=== PATIENT | male | born 1965 | race Caucasian/White ===

== ENCOUNTER → 2016-11-26 | Outpatient (CLI) | payer OTHER ==
[~2016-11-26] MED LIST: BACTRIM 400 MG-1 TAB; ENULOSE10 GM/15 M PO; FLAGYL PO; FORTAMET500 MG PO; GLIPIZIDE5 MG PO; GLUCOPHAGE XR500 M1 PO; GLYBURIDE MICRON3 MG PO; INDERAL 20MG20 MG PO; KAPIDEX60 MG PO; LACTULOSE SYRUP1 ML PO; LISINOPRIL10 MG PO; PRILOSEC 20MG20 MG PO; PRILOSEC20 MG PO; TRAMADOL50 MG PO; ULTRAM50 MG PO; XIFAXAN200 MG PO
== END ==
LOC: COL.RAD 08:05
DX: D37.6 Neoplasm of uncertain behavior of liver, gallbladder and bile ducts (principal); K74.69 Other cirrhosis of liver; I85.01 Esophageal varices with bleeding; K72.90 Hepatic failure, unspecified without coma; R77.2 Abnormality of alphafetoprotein
CPT/HCPCS: A9585

== ENCOUNTER → 2017-02-09 | Outpatient (CLI) | payer OTHER ==
[~2017-02-09] MED LIST changes: +PRINIVIL10 MG PO
== END ==
LOC: COL.RAD 10:16
DX: K74.60 Unspecified cirrhosis of liver (principal); R16.0 Hepatomegaly, not elsewhere classified; R77.2 Abnormality of alphafetoprotein; Z96.89 Presence of other specified functional implants
CPT/HCPCS: Q9967

== ENCOUNTER → 2017-04-23 | Outpatient (CLI) | payer OTHER ==
[~2017-04-23] MED LIST changes: -PRINIVIL10 MG PO
[2017-04-23 14:09] LABS: BASO # 0.1 (0.0-0.2); BASO % 0.9 % (0.0-2.0); EOS # 1.9 (0.0-0.7); EOS % 33.1 % (0-4.0); GRAN % 33.9 % (42.2-75.2); HEMATOCRIT 40.8 % (42.0-52.0); LYMPH # 1.3 (1.2-3.4); LYMPH % 21.8 % (20.0-51.0); MEAN CELL VOLUME 96 fl (80.0-100.0); MEAN CORPUSCULAR HEMOGLOBIN 33 pg (27.0-31.0); MEAN CORPUSCULAR HGB CONC 34 g/dl (33.0-37.0); MEAN PLATELET VOLUME 10.3 fl (7.4-10.4); MONO # 0.6 (0.1-0.6); MONO % 10.1 % (1.7-9.3); PLATELET COUNT 76 K/mm3 (130-400); RED BLOOD COUNT 4.27 M/mm3 (4.20-5.60); REDCELL DISTRIBUTION WIDTH-CV 13.6 % (11.5-14.5); WHITE BLOOD COUNT 5.8 K/mm3 (4.8-10.8)
[2017-04-23 14:17] LABS: ADJUSTED CALCIUM 9.9 mg/dL (8.4-10.2); ALBUMIN 2.9 gm/dL (3.5-5.0); BILIRUBIN,TOTAL 2.6 mg/dL (0.0-1.0); CREATININE, serum 0.52 mg/dL (0.66-1.25); POTASSIUM 5.1 mmol/L (3.4-5.0); TOTAL PROTEIN 6.7 gm/dL (6.4-8.2)
== END ==
LOC: COL.LAB 13:41
PROVIDERS: Physician Assistant
DX: K74.60 Unspecified cirrhosis of liver (principal); R63.4 Abnormal weight loss; R25.1 Tremor, unspecified; R11.10 Vomiting, unspecified

== ENCOUNTER → 2017-06-11 | Outpatient (CLI) | payer OTHER ==
[2008-11-19 13:06] VITALS: BP 125/71
[~2017-06-11] VITALS: Ht 165.1 cm; Wt 74.1 kg
[~2017-06-11] MED LIST changes: +BACTRIM DS 8001 TAB PO; +PRINIVIL10 MG PO
[2017-06-11 11:39] VITALS: BP 123/73; PULSE 67
[2017-06-11 11:43] LABS: INR 1.4 (0.8-3.0); PROTHROMBIN TIME 15.3 SECONDS (9.7-12.8)
== END ==
LOC: COL.RAD 11:00
PROVIDERS: Internal Medicine Medical Oncology
DX: K76.9 Liver disease, unspecified (principal); K70.30 Alcoholic cirrhosis of liver without ascites; Z53.9 Procedure and treatment not carried out, unspecified reason; C22.0 Liver cell carcinoma; E10.9 Type 1 diabetes mellitus without complications; Z79.84 Long term (current) use of oral hypoglycemic drugs; I10 Essential (primary) hypertension; Z82.49 Family history of ischemic heart disease and other diseases of the circulatory system; Z88.0 Allergy status to penicillin; Z96.89 Presence of other specified functional implants

== ENCOUNTER → 2017-11-26 | Outpatient (CLI) | payer OTHER | LOC: COL.RAD 09:59 | DX: C22.0 Liver cell carcinoma (principal); K74.60 Unspecified cirrhosis of liver; I85.01 Esophageal varices with bleeding | CPT/HCPCS: Q9967 ==

== ENCOUNTER → 2018-04-21 | Outpatient (CLI) | payer OTHER | LOC: COL.RAD 06:53 | DX: C22.8 Malignant neoplasm of liver, primary, unspecified as to type (principal) | CPT/HCPCS: A9585 ==

== ENCOUNTER → 2018-05-04 | Outpatient (REF) | LOC: COL.LAB 12:11 | DX: Z01.89 Encounter for other specified special examinations (principal) ==

== ENCOUNTER → 2018-05-26 | Outpatient (CLI) | payer OTHER | LOC: COL.RAD 09:43 | DX: C22.0 Liver cell carcinoma (principal); K74.60 Unspecified cirrhosis of liver; I85.01 Esophageal varices with bleeding; Z96.89 Presence of other specified functional implants | CPT/HCPCS: Q9967 ==

== ENCOUNTER → 2018-08-18 | Outpatient (CLI) | payer OTHER ==
[2018-08-18 16:29] LABS: ALBUMIN 2.5 gm/dL (3.5-5.0); CALCIUM 8.5 mg/dL (8.4-10.2); CREATININE, serum 0.64 mg/dL (0.66-1.25); POTASSIUM 3.3 mmol/L (3.4-5.0); TOTAL PROTEIN 6.1 gm/dL (6.4-8.2)
== END ==
LOC: COL.LAB 15:12
DX: C22.0 Liver cell carcinoma (principal)

== ENCOUNTER → 2018-09-02 | Outpatient (CLI) | payer OTHER | LOC: COL.RAD 12:45 | DX: C22.0 Liver cell carcinoma (principal); K74.69 Other cirrhosis of liver; Z90.49 Acquired absence of other specified parts of digestive tract ==

== ENCOUNTER → 2018-09-23 | Outpatient (CLI) | payer OTHER ==
[2018-09-23 14:03] LABS: ALBUMIN 2.4 gm/dL (3.5-5.0); BILIRUBIN,TOTAL 3.2 mg/dL (0.0-1.0); CALCIUM 9.5 mg/dL (8.4-10.2); CREATININE, serum 0.56 mg/dL (0.66-1.25); POTASSIUM 3.5 mmol/L (3.4-5.0); TOTAL PROTEIN 6.4 gm/dL (6.4-8.2)
== END ==
LOC: COL.LAB 13:27
PROVIDERS: Internal Medicine Gastroenterology
DX: C22.0 Liver cell carcinoma (principal)

== ENCOUNTER 2018-09-30 19:32 | Emergency (ER) | payer OTHER ==
[2008-11-19 13:06] VITALS: BP 125/71
[~2018-09-30] VITALS: Ht 165.1 cm; Wt 78.7 kg
[2018-09-30 20:13] LABS: BASO % 0.5 % (0.0-2.0); EOS # 0.4 (0.0-0.7); EOS % 5.1 % (0-4.0); GRAN # 5.8 (1.4-6.5); GRAN % 67.1 % (42.2-75.2); HEMATOCRIT 37.2 % (42.0-52.0); HEMOGLOBIN 12.4 g/dl (13.5-18.0); LYMPH # 1.2 (1.2-3.4); MEAN CELL VOLUME 97 fl (80.0-100.0); MEAN CORPUSCULAR HEMOGLOBIN 32 pg (27.0-31.0); MEAN CORPUSCULAR HGB CONC 33 g/dl (33.0-37.0); MEAN PLATELET VOLUME 10.3 fl (7.4-10.4); MONO # 1.1 (0.1-0.6); PLATELET COUNT 108 K/mm3 (130-400); RED BLOOD COUNT 3.84 M/mm3 (4.20-5.60); REDCELL DISTRIBUTION WIDTH-CV 15.5 % (11.5-14.5)
[2018-09-30 20:15] LABS: COLLECTION METHOD CLEAN CATCH
[2018-09-30 20:23] LABS: ALBUMIN 2.5 gm/dL (3.5-5.0); BILIRUBIN,TOTAL 4.3 mg/dL (0.0-1.0); CALCIUM 10.4 mg/dL (8.4-10.2); CREATININE, serum 0.61 mg/dL (0.66-1.25); POTASSIUM 3.6 mmol/L (3.4-5.0); TOTAL PROTEIN 6.7 gm/dL (6.4-8.2)
[2018-09-30 20:29] LABS: AMORPHOUS CRYSTAL Present /uL; MUCOUS Present /lpf; PH 7 (5-8); SQUAMOUS EPITHELIAL 0-2 /hpf; URINE APPEARANCE Cloudy; URINE BACTERIA None Seen /hpf; URINE BILIRUBIN Negative (NEGATIVE); URINE BLOOD Negative (NEGATIVE); URINE COLOR Yellow; URINE GLUCOSE Negative (NEGATIVE); URINE KETONE Negative (NEGATIVE); URINE LEUKOCYTE ESTERASE Negative (NEGATIVE); URINE NITRATE Negative (NEGATIVE); URINE PROTEIN(semi-quant) Negative (NEGATIVE); URINE RBC 0-2 /hpf; URINE UROBILINOGEN >=4.0 mg/dL (NEGATIVE); URINE WBC 0-2 /hpf
[2018-09-30] MEDS ORDERED: ALDACTONE50 MG PO ×2 (20:43)
[2018-09-30] MEDS ORDERED: LASIX 20MG TABL20 MG PO (20:43)
[2018-09-30] MEDS ORDERED: OMNICEF 300MG300 MG PO (20:54)
[2018-09-30 21:00] VITALS: BP 136/65; PULSE 80; TEMP 98.7
== END 2018-09-30 21:06 | disposition home or self-care (01) ==
LOC: COL.ER 19:32
PROVIDERS: Emergency Medicine
DX: R60.9 Edema, unspecified (principal); N50.89 Other specified disorders of the male genital organs; F17.210 Nicotine dependence, cigarettes, uncomplicated; Z90.49 Acquired absence of other specified parts of digestive tract; Z79.84 Long term (current) use of oral hypoglycemic drugs

== ENCOUNTER 2018-10-08 18:44 | Emergency (ER) | payer OTHER ==
[2008-11-19 13:06] VITALS: BP 125/71
[~2018-10-08 18:44] MED LIST changes: +ALDACTONE50 MG PO; +LASIX 20MG TABL20 MG PO; +OMNICEF 300MG300 MG PO
[2018-10-08 18:47] VITALS: BP 128/61; TEMP 98.4
[2018-10-08] MEDS ORDERED: ALDACTONE50 MG PO (19:06)
[2018-10-08] MEDS ORDERED: AMBIEN 10MG10 MG PO (19:06)
[2018-10-08 19:13] LABS: HEMOGLOBIN 11.3 g/dl (13.5-18.0); MEAN CELL VOLUME 99 fl (80.0-100.0); MEAN CORPUSCULAR HEMOGLOBIN 34 pg (27.0-31.0); MEAN CORPUSCULAR HGB CONC 34 g/dl (33.0-37.0); MEAN PLATELET VOLUME 10.5 fl (7.4-10.4); PLATELET COUNT 111 K/mm3 (130-400); RED BLOOD COUNT 3.34 M/mm3 (4.20-5.60); REDCELL DISTRIBUTION WIDTH-CV 15.9 % (11.5-14.5)
[2018-10-08 19:14] LABS: COLLECTION METHOD CLEAN CATCH
[2018-10-08 19:19] LABS: INR 1.9 (0.8-3.0); PROTHROMBIN TIME 21.1 SECONDS (9.7-12.8)
[2018-10-08 19:22] LABS: PARTIAL THROMBOPLASTIN TIME 37.9 SECONDS (26.0-37.0)
[2018-10-08 19:26] LABS: ALANINE AMINOTRANSFERASE 30 U/L (21-72); ALBUMIN 2.1 gm/dL (3.5-5.0); ALKALINE PHOSPHATASE 211 U/L (50-136); ANION GAP 2 mmol/L (7-16); AST,SGOT 60 U/L (15-37); BILIRUBIN,TOTAL 4.6 mg/dL (0.0-1.0); BLOOD UREA NITROGEN 7 mg/dL (9-20); C-REACTIVE PROTEIN 6.1 mg/dL (0.0-0.9); CALCIUM 8.4 mg/dL (8.4-10.2); CARBON DIOXIDE 32 mmol/L (22-30); CHLORIDE 100 mmol/L (98-107); CREATININE, serum 0.54 mg/dL (0.66-1.25); GLUCOSE 215 mg/dL (74-106); POTASSIUM 3.3 mmol/L (3.4-5.0); SODIUM 134 mmol/L (137-145); TOTAL PROTEIN 5.9 gm/dL (6.4-8.2)
[2018-10-08 19:27] LABS: ALCOHOL(ethanol),MEDICAL < 10 mg/dL
[2018-10-08 19:29] LABS: AMORPHOUS CRYSTAL Present /uL; PH 8 (5-8); SQUAMOUS EPITHELIAL None Seen /hpf; URINE APPEARANCE Cloudy; URINE BACTERIA None Seen /hpf; URINE BILIRUBIN Negative (NEGATIVE); URINE BLOOD Negative (NEGATIVE); URINE COLOR Amber; URINE GLUCOSE Negative (NEGATIVE); URINE KETONE Negative (NEGATIVE); URINE LEUKOCYTE ESTERASE Negative (NEGATIVE); URINE NITRATE Negative (NEGATIVE); URINE PROTEIN(semi-quant) Negative (NEGATIVE); URINE RBC None Seen /hpf; URINE UROBILINOGEN >=4.0 mg/dL (NEGATIVE)
[2018-10-08 19:41] LABS: EOSINOPHIL 7 % (0-4); LYMPHOCYTE 12 % (20.0-51.0); NEUTROPHILS 70 % (42.0-75.2); PLATELET ESTIMATE NORMAL (NORMAL)
[2018-10-08] MEDS ORDERED: XIFAXAN550 MG PO (20:34)
[2018-10-08 20:55] VITALS: PULSE 81
== END 2018-10-08 20:55 | disposition home or self-care (01) ==
LOC: COL.ER 18:44
PROVIDERS: Emergency Medicine
DX: K72.90 Hepatic failure, unspecified without coma (principal); R41.0 Disorientation, unspecified; E11.9 Type 2 diabetes mellitus without complications; I10 Essential (primary) hypertension; Z79.84 Long term (current) use of oral hypoglycemic drugs; Z90.49 Acquired absence of other specified parts of digestive tract

== ENCOUNTER 2018-10-20 23:37 | Inpatient (IN) | payer OTHER ==
[~2018-10-20] VITALS: Wt 64.5 kg
[~2018-10-20 23:37] MED LIST changes: +AMBIEN 10MG10 MG PO; +ULTRAM 50MG TAB50 MG PO; +XIFAXAN550 MG PO
[2018-10-21 16:00] VITALS: BP 135/72; PULSE 90; TEMP 98.5
--- NOTE | 2018-10-21 16:00 | NUR ---
Family at bedside. Pt resting, easily arousable. Vital signs stable. Call light in reach.
[2018-10-21] MEDS ORDERED: KRISTALOSE20 GM/PACK PO ×2 (16:49→16:50)
[2018-10-21] MEDS ORDERED: PEPCID 20MG TAB20 MG PO (17:05)
--- NOTE | 2018-10-21 19:20 | NUR ---
Bedside report received from Lizette Pinto RN. Pt resting in bed, denies any pain at this time. Daughter Blanca at bedside.
--- NOTE | 2018-10-21 19:21 | NUR ---
Report given to JOSH Wyatt.
[2018-10-21 20:00] VITALS: BP 139/77; PULSE 97; TEMP 99.3
--- NOTE | 2018-10-21 21:30 | NUR ---
Pt assessment complete. Pt resting in bed with daughter at bedside for translation. Pt denies any pain or questions. Reviewed with pt need to decrease amount of sugar in take with request of juice. Grape juice was provided with Lactulose, pt reports preference with orance juice. With orientation pt originally stated it was 2002 for the year although when asked again, pt stated "I got confused" and then verbalized the correct year. Is pleasant and cooperative although bhutanese speaking with very little romanian noted in conversation.
[2018-10-22] VITALS: BP 133/73; PULSE 92; TEMP 99.4
--- NOTE | 2018-10-22 | NUR ---
Pt resting with eyes closed in bed at this time. Denies any wants or needs. Daughter continues at bedside in the recliner for translation purposes.
[2018-10-22 04:00] VITALS: BP 128/75; PULSE 74; TEMP 98.9
[2018-10-22 05:13] LABS: HEMOGLOBIN 11.2 g/dl (13.5-18.0); MEAN CELL VOLUME 98 fl (80.0-100.0); MEAN CORPUSCULAR HEMOGLOBIN 34 pg (27.0-31.0); MEAN CORPUSCULAR HGB CONC 34 g/dl (33.0-37.0); MEAN PLATELET VOLUME 10.5 fl (7.4-10.4); PLATELET COUNT 91 K/mm3 (130-400); RED BLOOD COUNT 3.34 M/mm3 (4.20-5.60)
[2018-10-22 05:19] LABS: HEMATOCRIT 32.8 % (42.0-52.0)
[2018-10-22 05:25] LABS: ALBUMIN 1.8 gm/dL (3.5-5.0); CALCIUM 7.2 mg/dL (8.4-10.2); CREATININE, serum 0.49 mg/dL (0.66-1.25); POTASSIUM 3.4 mmol/L (3.4-5.0); TOTAL PROTEIN 5.2 gm/dL (6.4-8.2)
--- NOTE | 2018-10-22 07:00 | NUR ---
Bedside report provided to Rommel MORENO. Pt resting in bed at this time with daughter resting at bedside in a recliner translating. No questions at this time.
[2018-10-22] MEDS ORDERED: CONSTULOSE 20G/30ML PO (09:48)
[2018-10-22 12:06] VITALS: BP 125/82; PULSE 72; TEMP 98
--- NOTE | 2018-10-22 13:13 | NUR ---
Discharge instructions provided to to include patinet education in [place] of [place]. assisted patinet in dressing. verbalized understanding of dischanrge instructions and teaching. denied having questions at this time. Patient walked out with and nursing staff at 1313.
[2018-10-22 16:07] LABS: BILIRUBIN,TOTAL 3.8 mg/dL (0.0-1.0); CALCIUM 7.6 mg/dL (8.4-10.2); CREATININE, serum 0.56 mg/dL (0.66-1.25); POTASSIUM 3.7 mmol/L (3.4-5.0); TOTAL PROTEIN 5.8 gm/dL (6.4-8.2)
[2018-10-22 16:14] LABS: BASO % 0.5 % (0.0-2.0); EOS # 0.6 (0.0-0.7); EOS % 9.8 % (0-4.0); GRAN # 3.4 (1.4-6.5); GRAN % 54.7 % (42.2-75.2); HEMATOCRIT 41.4 % (42.0-52.0); HEMOGLOBIN 14.2 g/dl (13.5-18.0); LYMPH # 1.5 (1.2-3.4); LYMPH % 23.9 % (20.0-51.0); MEAN CELL VOLUME 99 fl (80.0-100.0); MEAN CORPUSCULAR HEMOGLOBIN 34 pg (27.0-31.0); MEAN CORPUSCULAR HGB CONC 34 g/dl (33.0-37.0); MEAN PLATELET VOLUME 10.7 fl (7.4-10.4); MONO # 0.7 (0.1-0.6); MONO % 10.6 % (1.7-9.3); PLATELET COUNT 92 K/mm3 (130-400); RED BLOOD COUNT 4.18 M/mm3 (4.20-5.60); REDCELL DISTRIBUTION WIDTH-CV 15.5 % (11.5-14.5)
[2018-10-22 16:17] LABS: COLLECTION METHOD CLEAN CATCH
[2018-10-22 16:27] LABS: ALANINE AMINOTRANSFERASE 42 U/L (21-72); ALBUMIN 2.6 gm/dL (3.5-5.0); ALKALINE PHOSPHATASE 336 U/L (50-136); ANION GAP 6 mmol/L (7-16); AST,SGOT 82 U/L (15-37); BLOOD UREA NITROGEN 7 mg/dL (9-20); CARBON DIOXIDE 26 mmol/L (22-30); CHLORIDE 104 mmol/L (98-107); CREATININE, serum 0.58 mg/dL (0.66-1.25); GLUCOSE 150 mg/dL (74-106); LIPASE 106 U/L (23-300); POTASSIUM 3.9 mmol/L (3.4-5.0); SODIUM 136 mmol/L (137-145); TOTAL PROTEIN 7.1 gm/dL (6.4-8.2); TROPONIN-I < 0.012 ng/mL (0.000-0.035)
[2018-10-22 16:28] LABS: BILIRUBIN,DIRECT 1.3 mg/dL (0.0-0.4); BILIRUBIN,TOTAL 3.9 mg/dL (0.0-1.0); LACTIC ACID 4.9 mmol/L (0.4-2.0)
[2018-10-22 16:29] LABS: BASO # 0.1 (0.0-0.2); BASO % 0.8 % (0.0-2.0); EOS % 15.6 % (0-4.0); GRAN # 3.3 (1.4-6.5); HEMATOCRIT 42.6 % (42.0-52.0); HEMOGLOBIN 14.4 g/dl (13.5-18.0); LYMPH # 1.6 (1.2-3.4); LYMPH % 23.8 % (20.0-51.0); MEAN CELL VOLUME 100 fl (80.0-100.0); MEAN CORPUSCULAR HEMOGLOBIN 34 pg (27.0-31.0); MEAN CORPUSCULAR HGB CONC 34 g/dl (33.0-37.0); MEAN PLATELET VOLUME 10.2 fl (7.4-10.4); MONO # 0.6 (0.1-0.6); MONO % 9.5 % (1.7-9.3); PLATELET COUNT 127 K/mm3 (130-400); RED BLOOD COUNT 4.28 M/mm3 (4.20-5.60); REDCELL DISTRIBUTION WIDTH-CV 15.2 % (11.5-14.5)
[2018-10-22 16:30] LABS: MUCOUS Present /lpf; PH 7 (5-8); SQUAMOUS EPITHELIAL None Seen /hpf; URINE APPEARANCE Clear; URINE BACTERIA None Seen /hpf; URINE BILIRUBIN Negative (NEGATIVE); URINE BLOOD Negative (NEGATIVE); URINE COLOR Amber; URINE GLUCOSE Negative (NEGATIVE); URINE KETONE Negative (NEGATIVE); URINE LEUKOCYTE ESTERASE Negative (NEGATIVE); URINE NITRATE Negative (NEGATIVE); URINE PROTEIN(semi-quant) Negative (NEGATIVE); URINE RBC 0-2 /hpf
[2018-10-22 16:31] LABS: INR 1.7 (0.8-3.0); PARTIAL THROMBOPLASTIN TIME 43.7 SECONDS (26.0-37.0); PROTHROMBIN TIME 19.3 SECONDS (9.7-12.8)
== END 2018-10-22 13:13 | disposition home or self-care (01) | DRG 442 ==
LOC: COL.ER 23:37 → MEDICAL 10-21 05:50 → ICU 10-21 05:50 → MEDICAL 10-21 14:36 → ICU 10-21 16:39 → SURG 10-21 16:39 → ICU 10-21 16:53 → EDSTATUS 10-24 10:15
PROVIDERS: Hospitalist; ADMIT Internal Medicine
DX: K72.00 Acute and subacute hepatic failure without coma (principal); C22.8 Malignant neoplasm of liver, primary, unspecified as to type; E87.2 Acidosis; K70.30 Alcoholic cirrhosis of liver without ascites; T47.3X6A Underdosing of saline and osmotic laxatives, initial encounter; Z91.128 Patient's intentional underdosing of medication regimen for other reason; E11.9 Type 2 diabetes mellitus without complications; Z87.891 Personal history of nicotine dependence
CPT/HCPCS: 99222-AI; 99239; J1644; J1815; J7030

== ENCOUNTER → 2018-11-16 | Outpatient (CLI) | payer OTHER ==
[~2018-11-16] MED LIST changes: +CONSTULOSE 20G/30ML PO; +KRISTALOSE20 GM/PACK PO; +PEPCID 20MG TAB20 MG PO
[2018-11-16 15:50] LABS: ALBUMIN 2.1 gm/dL (3.5-5.0); BILIRUBIN,TOTAL 5.9 mg/dL (0.0-1.0); CALCIUM 7.7 mg/dL (8.4-10.2); CREATININE, serum 0.67 (0.66-1.25); POTASSIUM 3.2 mmol/L (3.4-5.0); TOTAL PROTEIN 5.7 gm/dL (6.4-8.2)
== END ==
LOC: COL.LAB 15:10
PROVIDERS: Internal Medicine Gastroenterology
DX: K74.69 Other cirrhosis of liver (principal)

== ENCOUNTER 2018-11-25 08:39 | Day surgery (SDC) | payer OTHER ==
[2008-11-19 13:06] VITALS: BP 125/71
[~2018-11-25] VITALS: Ht 165.1 cm; Wt 68.9 kg
[2018-11-25 10:25] VITALS: BP 139/81; PULSE 79; TEMP 98.2
[2018-11-25 11:55] VITALS: BP 128/74; PULSE 82; TEMP 98.4
--- NOTE | 2018-11-25 11:55 | NUR ---
TO BAY 1 VIA CART FROM ENDO ROOM, PT WALKED TO CHAIR, PT TAKES JUICE AND MUFFIN, CALL LIGHT IN REACH, WILL CALL BROTHER WHEN DISCHARGED
[2018-11-25 12:10] VITALS: BP 103/56; PULSE 74
[2018-11-25 12:25] VITALS: BP 126/72; PULSE 89
--- NOTE | 2018-11-25 12:25 | NUR ---
DR MAYA INTO SEE PT, PT IV D'CD INTACT, UP AND DRESSED, CALLED BROTHER FOR DISCHARGE
[2018-11-25 12:45] VITALS: BP 117/71; PULSE 80
--- NOTE | 2018-11-25 13:00 | NUR ---
REVIEWED DISCHARGE INST. WITH PT, REVIEWED PT HAD NO BIOPSIES OR FOLLOWUP, SHOULD CONTACT MEDICAL DR IF ANY PROBLEMS, REVIEWED DIET AND ACTIVITY ALSO WITH VERBAL UNDERSTANDING. PT DISCHARGED VIA W/C TO CAR WITH BROTHER
[2018-11-25 13:14] VITALS: BP 108/50; PULSE 81
== END 2018-11-25 14:38 ==
LOC: SDCO 08:39
DX: Z12.11 Encounter for screening for malignant neoplasm of colon (principal); K70.30 Alcoholic cirrhosis of liver without ascites; I85.10 Secondary esophageal varices without bleeding; Z88.0 Allergy status to penicillin; Z79.84 Long term (current) use of oral hypoglycemic drugs; D50.0 Iron deficiency anemia secondary to blood loss (chronic); K92.1 Melena; E11.9 Type 2 diabetes mellitus without complications; K59.00 Constipation, unspecified; K92.0 Hematemesis; K72.90 Hepatic failure, unspecified without coma; C22.0 Liver cell carcinoma; R74.8 Abnormal levels of other serum enzymes
CPT/HCPCS: J2250; J3010

== ENCOUNTER 2018-12-13 11:30 | Observation (INO) | payer OTHER ==
[2008-11-19 13:06] VITALS: BP 125/71
[~2018-12-13] VITALS: Ht 165.1 cm; Wt 68.2 kg
[2018-12-13 12:19] LABS: BASO % 0.4 % (0.0-2.0); EOS # 1.1 (0.0-0.7); EOS % 15.8 % (0-4.0); GRAN # 2.8 (1.4-6.5); GRAN % 40.8 % (42.2-75.2); HEMOGLOBIN 12.1 g/dl (13.5-18.0); LYMPH # 1.9 (1.2-3.4); LYMPH % 27.8 % (20.0-51.0); MEAN CELL VOLUME 97 fl (80.0-100.0); MEAN CORPUSCULAR HEMOGLOBIN 33 pg (27.0-31.0); MEAN CORPUSCULAR HGB CONC 34 g/dl (33.0-37.0); MEAN PLATELET VOLUME 11.1 fl (7.4-10.4); MONO % 15.1 % (1.7-9.3); PLATELET COUNT 96 K/mm3 (130-400); RED BLOOD COUNT 3.63 M/mm3 (4.20-5.60); REDCELL DISTRIBUTION WIDTH-CV 15.4 % (11.5-14.5)
[2018-12-13 12:20] LABS: HEMATOCRIT 35.3 % (42.0-52.0)
[2018-12-13 12:26] LABS: ALBUMIN 2.2 gm/dL (3.5-5.0); BILIRUBIN,TOTAL 3.9 mg/dL (0.0-1.0); CALCIUM 8.8 mg/dL (8.4-10.2); CREATININE, serum 0.71 (0.66-1.25)
[2018-12-13 12:27] LABS: POTASSIUM 2.6 mmol/L (3.4-5.0)
[2018-12-13] MEDS ORDERED: ZOFRAN 4MG T4 MG/TAB PO (13:50)
[2018-12-13] MEDS ORDERED: OXY IR5 MG PO (13:50)
[2018-12-13] MEDS ORDERED: CARAFATE 1GM1 G PO (13:51)
[2018-12-13] MEDS ORDERED: GLUCOPHAGE500 MG/TAB PO (13:51)
--- NOTE | 2018-12-13 15:00 | NUR ---
Patient up to room, laying in bed. Assessment complete. Patient denies SOB, chest pain, dizziness, nausea/vomiting. Patient c/o of pain in RUQ of abdomen if you "push. but no push....ok". Denies wanting anything for pain at the moment, maybe later. Heart sounds are normal, breathing is unlabored on room air, lung sounds clear throughout. Bowel sounds active X4. No edema noted. LAC INT IV is CDI. Patient requesting sprite. Denies other needs at this time. Call light within reach.
[2018-12-13 15:40] VITALS: BP 105/64; PULSE 77; TEMP 98.7
[2018-12-13 16:00] VITALS: BP 105/64; PULSE 77; TEMP 98.7
--- NOTE | 2018-12-13 19:26 | NUR ---
PATIENT SLEEPING IN BED AT SHIFT CHANGE. AT BEDSIDE SLEEPING WELL. PATIENT DENIES NEEDS AT THIS TIME. NO COMPLAINTS. REPORT GIVEN TO JOSH DURAND.
[2018-12-13 19:28] VITALS: BP 108/62; PULSE 79; TEMP 98.7
--- NOTE | 2018-12-13 19:36 | NUR ---
Pt resting in bed with at bedside. Assessment completed- lungs clear, abdominal sounds active, pulses +3, cap refill <3 seconds, denies pain. translating for patient. Potassium replacement given. NO further needs at this time.
[2018-12-13 22:24] LABS: CALCIUM 8.4 mg/dL (8.4-10.2); CREATININE, serum 0.62 (0.66-1.25); POTASSIUM 3.8 mmol/L (3.4-5.0)
[2018-12-14 00:16] LABS: COLLECTION METHOD CLEAN CATCH
[2018-12-14 00:26] LABS: PH 8 (5-8); SQUAMOUS EPITHELIAL None Seen /hpf; URINE APPEARANCE Clear; URINE BACTERIA None Seen /hpf; URINE BILIRUBIN Negative (NEGATIVE); URINE BLOOD Negative (NEGATIVE); URINE COLOR Yellow; URINE GLUCOSE 1+ (NEGATIVE); URINE KETONE Negative (NEGATIVE); URINE LEUKOCYTE ESTERASE Negative (NEGATIVE); URINE NITRATE Negative (NEGATIVE); URINE PROTEIN(semi-quant) Negative (NEGATIVE); URINE RBC 0-2 /hpf; URINE UROBILINOGEN Negative (NEGATIVE)
[2018-12-14 01:07] VITALS: BP 103/65; PULSE 79; TEMP 99.4
--- NOTE | 2018-12-14 05:06 | NUR ---
Pt slept for most of the night, VSS, no reports of pain. No needs at this time, at bedside.
[2018-12-14 05:21] VITALS: BP 103/52; PULSE 66; TEMP 97.6
[2018-12-14 05:27] LABS: ALBUMIN 1.8 gm/dL (3.5-5.0); BILIRUBIN,TOTAL 3.3 mg/dL (0.0-1.0); CREATININE, serum 0.64 (0.66-1.25); MAGNESIUM 1.7 mg/dL (1.6-2.3); POTASSIUM 3.1 mmol/L (3.4-5.0); TOTAL PROTEIN 5.1 gm/dL (6.4-8.2)
--- NOTE | 2018-12-14 06:54 | NUR ---
report given to JOSH Khoury.
[2018-12-14 07:27] VITALS: BP 103/56; PULSE 67; TEMP 986
--- NOTE | 2018-12-14 07:49 | NUR ---
Pt assessment complete. Pt is laying in bed sleeping upon entry, he arouses to voice. He is oriented x3. His breathing is even and unlabored on RA, no SOB. Pt denies any pain. No N/V. POC discussed with patient and his daughter. No further needs at this time. Call light within reach. Will continue to monitor.
[2018-12-14 10:54] VITALS: BP 116/61; PULSE 79; TEMP 98.3
--- NOTE | 2018-12-14 11:16 | NUR ---
SW and SW student attended clinical rounding and met with the patient and his , Blanca, to discuss discharge planning. The patient lives in [place] with his and kids. The patient reports independence with ADLs and has no DME. The patients PCP is Dr. Thompson and he gets his medications at [facility] in [place]. The patient reports no difficulties obtaining his medications. The patient does not have DPOA-HC in EMR but was interested in completing a form. SW provided and will follow up to witness sign. The patient plans to return home upon discharge. No additional needs at this time.
--- NOTE | 2018-12-14 12:14 | NUR ---
Initial visit; Patient's family thanked Lining Sewer for looking in on Seun and offering spiritual care.
[2018-12-14 16:15] VITALS: BP 106/66; PULSE 96; TEMP 98.6
--- NOTE | 2018-12-14 18:49 | NUR ---
Pt had uneventful day. No pain present. Pt remained A/O x3. Pt reports no BM today. No needs at this time. Daughter and call light at bedside. Report given to JOSH Sams.
[2018-12-14 21:19] VITALS: BP 107/60; PULSE 87; TEMP 99.6
--- NOTE | 2018-12-14 23:59 | NUR ---
Completed medication administration and assessment; PT tolerated all cares well; PT report minimal pain to ABD; PT A&Ox4, BS active x4, PT reports active bowel movements, daughter in room; No further reported or assessed concerns at time of exit; PT able to return to comfortable position in bed with personal items and call light within reach; Will continue to monitor. CDA
[2018-12-15 00:50] VITALS: BP 104/58; PULSE 90; TEMP 99.8
--- NOTE | 2018-12-15 01:53 | NUR ---
PT resting well in bed; No further assessed concerns or complaints at times of rounds; Will continue to monitor. CDA
[2018-12-15 05:44] VITALS: BP 104/63; BP 189/86; PULSE 73; PULSE 79; TEMP 98
[2018-12-15 06:27] LABS: CALCIUM 7.8 mg/dL (8.4-10.2); CREATININE, serum 0.62 (0.66-1.25); MAGNESIUM 1.8 mg/dL (1.6-2.3); POTASSIUM 3.7 mmol/L (3.4-5.0)
--- NOTE | 2018-12-15 06:59 | NUR ---
Report given to JOSH Khoury; No significant changes or concerns at time of shift change. CDA
[2018-12-15 07:44] VITALS: BP 125/70; PULSE 73; TEMP 98.6
--- NOTE | 2018-12-15 07:46 | NUR ---
PATIENT UP TO BATHROOM INDEPENDENTLY. OBSERVEDED WITH STEADY GAIT. DENIES C/O PAIN OR DISCOMFORT. MORNING ASSESSMENT COMPLETED. A/O X 4. ATTITUDE CALM AND COOPERATIVE. LUNG SOUNDS CLEAR THROUGHOUT. NO EDEMA NOTED IN BILATERAL LE. IV TO LEFT AC FLUSHED PER PROTOCOL WNL. POTASSIUM REPLACEMENT ORDERED PER PROTOCOL. FAMILY AT BEDSIDE SLEEPING. PATIENT DENIES FURTHER NEEDS AT THIS TIME.
[2018-12-15] MEDS ORDERED: K-TAB20 PO (09:08)
[2018-12-15] MEDS ORDERED: LASIX 20MG TABL20 MG PO (09:21)
--- NOTE | 2018-12-15 12:38 | NUR ---
PATIENT DC TO HOME ACCOMPANIED BY DAUGHTER VIA POV @ 5100. PRINTED DC INSTRUCTIONS AND DC HOME MEDICATION LIST REVIEWED WITH PATIENT AND DAUGHTER. ACKNOWLEDGED UNDERSTANDING AND DENIED QUESTIONS OR CONCERNS AFTER REVIEW.
== END 2018-12-15 11:20 | disposition home or self-care (01) ==
LOC: COL.ER 11:30 → MEDICAL 13:31
PROVIDERS: Emergency Medicine; Nurse Practitioner Family; Physician Assistant; ADMIT Family Medicine
DX: E87.6 Hypokalemia (principal); K70.30 Alcoholic cirrhosis of liver without ascites; C22.8 Malignant neoplasm of liver, primary, unspecified as to type; E83.42 Hypomagnesemia; E72.20 Disorder of urea cycle metabolism, unspecified; R53.1 Weakness; E11.9 Type 2 diabetes mellitus without complications; K21.9 Gastro-esophageal reflux disease without esophagitis; E44.0 Moderate protein-calorie malnutrition; Z79.84 Long term (current) use of oral hypoglycemic drugs; Z90.49 Acquired absence of other specified parts of digestive tract; Z88.0 Allergy status to penicillin
CPT/HCPCS: 99233-AI; G0378; J1650; J1815; J3475; J3480

== ENCOUNTER → 2018-12-20 | Outpatient (CLI) | payer OTHER ==
[~2018-12-20] MED LIST changes: +CARAFATE 1GM1 G PO; +GLUCOPHAGE500 MG/TAB PO; +K-TAB20 PO; +OXY IR5 MG PO; +ZOFRAN 4MG T4 MG/TAB PO
[2018-12-20 10:25] LABS: CALCIUM 8.6 mg/dL (8.4-10.2); CREATININE, serum 0.61 (0.66-1.25); MAGNESIUM 1.4 mg/dL (1.6-2.3); POTASSIUM 4.4 mmol/L (3.4-5.0)
== END ==
LOC: COL.LAB 09:55
PROVIDERS: Nurse Practitioner Family
DX: E87.6 Hypokalemia (principal); E83.42 Hypomagnesemia

== ENCOUNTER → 2019-01-02 | Outpatient (CLI) | payer OTHER | LOC: COL.RAD 13:19 | DX: C22.0 Liver cell carcinoma (principal); K21.9 Gastro-esophageal reflux disease without esophagitis; K74.60 Unspecified cirrhosis of liver; K72.90 Hepatic failure, unspecified without coma; K76.6 Portal hypertension; R91.1 Solitary pulmonary nodule; J90 Pleural effusion, not elsewhere classified; Z98.890 Other specified postprocedural states ==

== ENCOUNTER 2019-02-24 17:58 | Observation (INO) | payer OTHER ==
[~2019-02-24] VITALS: Ht 165.1 cm; Wt 70.6 kg
[2019-02-24] MEDS ORDERED: CONSTULOSE 20G/30ML PO (18:51)
[2019-02-24] MEDS ORDERED: ENULOSE10 GM/151 PO (18:52)
[2019-02-24 19:00] LABS: BASO % 0.9 % (0.0-2.0); EOS # 0.3 (0.0-0.7); EOS % 6.5 % (0-4.0); GRAN # 2.1 (1.4-6.5); GRAN % 48.1 % (42.2-75.2); HEMATOCRIT 35.3 % (42.0-52.0); HEMOGLOBIN 11.9 g/dl (13.5-18.0); LYMPH # 1.3 (1.2-3.4); LYMPH % 28.3 % (20.0-51.0); MEAN CELL VOLUME 96 fl (80.0-100.0); MEAN CORPUSCULAR HEMOGLOBIN 33 pg (27.0-31.0); MEAN CORPUSCULAR HGB CONC 34 g/dl (33.0-37.0); MEAN PLATELET VOLUME 11.2 fl (7.4-10.4); MONO # 0.7 (0.1-0.6); PLATELET COUNT 84 K/mm3 (130-400); RED BLOOD COUNT 3.66 M/mm3 (4.20-5.60); REDCELL DISTRIBUTION WIDTH-CV 14.7 % (11.5-14.5)
[2019-02-24 19:13] LABS: ALBUMIN 2.1 gm/dL (3.5-5.0); BILIRUBIN,TOTAL 3.5 mg/dL (0.0-1.0); CALCIUM 8.3 mg/dL (8.4-10.2); CREATININE, serum 0.58 (0.66-1.25); POTASSIUM 3.1 mmol/L (3.4-5.0)
[2019-02-24 19:36] LABS: INR 1.7 (0.8-3.0); PROTHROMBIN TIME 20.6 SECONDS (9.7-12.8)
[2019-02-24 19:39] LABS: PARTIAL THROMBOPLASTIN TIME 43.6 SECONDS (26.0-37.0)
[2019-02-24 20:08] LABS: COLLECTION METHOD CLEAN CATCH
[2019-02-24 20:22] LABS: PH 7 (5-8); SQUAMOUS EPITHELIAL None Seen /hpf; URINE APPEARANCE Clear; URINE BACTERIA None Seen /hpf; URINE BILIRUBIN Negative (NEGATIVE); URINE BLOOD 1+ (NEGATIVE); URINE COLOR Yellow; URINE GLUCOSE Negative (NEGATIVE); URINE KETONE Negative (NEGATIVE); URINE LEUKOCYTE ESTERASE Negative (NEGATIVE); URINE NITRATE Negative (NEGATIVE); URINE PROTEIN(semi-quant) Negative (NEGATIVE)
[2019-02-24 21:19] VITALS: BP 141/74; PULSE 80; TEMP 98
[2019-02-24 21:42] VITALS: BP 141/74; PULSE 80; TEMP 98
[2019-02-24 21:44] LABS: MAGNESIUM 1.6 mg/dL (1.6-2.3)
[2019-02-24 21:56] LABS: TROPONIN-I 3 HR POST INITIAL < 0.012 ng/mL (0.000-0.034)
--- NOTE | 2019-02-24 22:30 | NUR ---
Admitted to medical floor from ER with DX; N/V, Hx; hepatic CA, hypokalemia- alert/oriented x4, pleasant, denies pain/N/V at this time- was given zofran and phenergan in ER- VSS, understands to get help up to bathroom, Yadi ABDALLA will be up to see pt within the hour. Tele on, on potassium protocol-
[2019-02-24] MEDS ORDERED: CALCIUM CITRAT950 MG PO (22:57)
[2019-02-24] MEDS ORDERED: VITAMIN A10k PO (22:57)
[2019-02-24] MEDS ORDERED: POTASSIUM GLUC595 M1 PO (22:57)
[2019-02-24] MEDS ORDERED: VITAMIN D 50,1.25 MG PO (22:59)
[2019-02-24] MEDS ORDERED: ULTRAM 50MG TAB50 MG PO (22:59)
[2019-02-24] MEDS ORDERED: CARAFATE 1GM1 G PO (23:00)
[2019-02-24 23:24] VITALS: BP 127/68; PULSE 73; TEMP 98.5
[2019-02-25 04:06] VITALS: BP 112/58; PULSE 66; TEMP 98.5
--- NOTE | 2019-02-25 06:47 | NUR ---
Quiet night- did sleep well all night- VSS-- no complaints of pain/nausea,,IV fluids dc,d after this current bag infused--
--- NOTE | 2019-02-25 07:00 | NUR ---
Report received from JOSH Jain. PT in bed resting with IVF infusing. Denies needs, will continue to monitor.
[2019-02-25 07:13] VITALS: BP 124/71; PULSE 77; TEMP 98.5
[2019-02-25 07:19] LABS: BASO % 0.8 % (0.0-2.0); EOS # 0.3 (0.0-0.7); EOS % 7.8 % (0-4.0); GRAN # 1.5 (1.4-6.5); GRAN % 41.8 % (42.2-75.2); LYMPH # 1.2 (1.2-3.4); LYMPH % 33.1 % (20.0-51.0); MEAN CELL VOLUME 96 fl (80.0-100.0); MEAN CORPUSCULAR HEMOGLOBIN 33 pg (27.0-31.0); MEAN CORPUSCULAR HGB CONC 34 g/dl (33.0-37.0); MEAN PLATELET VOLUME 11.7 fl (7.4-10.4); MONO # 0.6 (0.1-0.6); MONO % 15.9 % (1.7-9.3); PLATELET COUNT 72 K/mm3 (130-400); RED BLOOD COUNT 3.35 M/mm3 (4.20-5.60)
[2019-02-25 07:28] LABS: ALBUMIN 1.8 gm/dL (3.5-5.0); CALCIUM 7.2 mg/dL (8.4-10.2); CREATININE, serum 0.58 (0.66-1.25); TOTAL PROTEIN 5.5 gm/dL (6.4-8.2)
--- NOTE | 2019-02-25 09:59 | NUR ---
Assessment charted. PT states he has no pain or nausea today but it was very bad yesterday. Disucssed potassium levels and ammonia levels. Pt speaks portuguese well. INT to L A/C. Wanting to have a BM today, has been 3 days for him. Disucssed his concern about his shakiness todya, states whenever he is sick he becomes very shakey. Will continue to monitor.
[2019-02-25 11:34] VITALS: BP 123/62; PULSE 85; TEMP 98.2
--- NOTE | 2019-02-25 11:43 | NUR ---
Cutter Operator Asbestos Shingle visited with patient but patient did not need prayer.
--- NOTE | 2019-02-25 13:32 | NUR ---
LILIYA contacted the patient's , Blanca, to discuss discharge plan. The patient speaks Nicaraguan. The patient lives in [place] with his and children. Blanca reports that the patient is independent with ADLs and he does not have any DME. The patient's PCP is Dr. Liat Thompson and he receives his medications from [facility] or he will utilize the [facility]. Blanca reports no difficulties obtaining his meds. The patient does not have advanced directives. The patient plans to return home with his family upon discharge. No additional needs at this time.
[2019-02-25 17:26] VITALS: BP 119/57; PULSE 83; TEMP 99
--- NOTE | 2019-02-25 18:24 | NUR ---
Pt haydee well. States he has had 2 BMs today. at bedside wants to clean him up and help tonight and stay overnights. Denies needs. Eating well. No nausea or pain. Will give bedside shift report to nightshift nurse who will resume care.
[2019-02-25 20:30] VITALS: BP 130/58; PULSE 90; TEMP 99.8
--- NOTE | 2019-02-25 20:30 | NUR ---
Initial shift assessment done- states having some aches all over, pain 8/10-will give Ultram as ordered, tele on- will have Potassium rechecked at 2230 tonight- staying the night tonight with patient.
[2019-02-26] VITALS: BP 134/65; PULSE 89; TEMP 99.2
[2019-02-26 04:06] VITALS: BP 135/70; PULSE 75; TEMP 98.2
--- NOTE | 2019-02-26 04:39 | NUR ---
Quiet night-has been sleeping all night- repeat potassium 3.7=did get 2 more doses of oral potassium, recheck this morning.
[2019-02-26 07:31] VITALS: BP 128/74; PULSE 74; TEMP 98.1
[2019-02-26 07:44] LABS: BASO % 0.4 % (0.0-2.0); EOS # 0.4 (0.0-0.7); EOS % 7.5 % (0-4.0); GRAN # 2.2 (1.4-6.5); HEMOGLOBIN 11.5 g/dl (13.5-18.0); LYMPH # 1.5 (1.2-3.4); LYMPH % 31.3 % (20.0-51.0); MEAN CELL VOLUME 97 fl (80.0-100.0); MEAN CORPUSCULAR HEMOGLOBIN 32 pg (27.0-31.0); MEAN CORPUSCULAR HGB CONC 33 g/dl (33.0-37.0); MEAN PLATELET VOLUME 11.1 fl (7.4-10.4); MONO # 0.7 (0.1-0.6); MONO % 14.6 % (1.7-9.3); PLATELET COUNT 72 K/mm3 (130-400); RED BLOOD COUNT 3.56 M/mm3 (4.20-5.60); REDCELL DISTRIBUTION WIDTH-CV 15.6 % (11.5-14.5)
[2019-02-26 07:49] LABS: HEMATOCRIT 34.6 % (42.0-52.0)
[2019-02-26 07:58] LABS: BILIRUBIN,TOTAL 3.1 mg/dL (0.0-1.0); CALCIUM 8.1 mg/dL (8.4-10.2); CREATININE, serum 0.56 (0.66-1.25); MAGNESIUM 1.5 mg/dL (1.6-2.3); POTASSIUM 3.3 mmol/L (3.4-5.0); TOTAL PROTEIN 5.8 gm/dL (6.4-8.2)
[2019-02-26 08:26] LABS: HEMOGLOBIN A1C 5.8 %
--- NOTE | 2019-02-26 10:00 | NUR ---
Patient alert and oriented, answers questions appropriately. See assessment. No c/o at this time .
[2019-02-26 11:22] VITALS: BP 127/66; PULSE 87; TEMP 98.1
[2019-02-26] MEDS ORDERED: ZOFRAN 4MG T4 MG/TAB PO (14:01)
--- NOTE | 2019-02-26 15:38 | NUR ---
Discharge instructions reviewed with patient and spouse, verbalized understanding. Discharged via wheelchair to auto/home with spouse at 1535.
== END 2019-02-26 15:35 | disposition home or self-care (01) ==
LOC: COL.ER 17:58 → MEDICAL 20:03
PROVIDERS: Emergency Medicine; Nurse Practitioner Family; Physician Assistant; ADMIT Internal Medicine
DX: R11.0 Nausea (principal); K72.90 Hepatic failure, unspecified without coma; G25.2 Other specified forms of tremor; E86.0 Dehydration; E87.6 Hypokalemia; E83.42 Hypomagnesemia; R53.1 Weakness; K70.30 Alcoholic cirrhosis of liver without ascites; R74.0 Nonspecific elevation of levels of transaminase and lactic acid dehydrogenase [LDH]; E80.6 Other disorders of bilirubin metabolism; D53.9 Nutritional anemia, unspecified; E11.9 Type 2 diabetes mellitus without complications; K21.9 Gastro-esophageal reflux disease without esophagitis; Z85.05 Personal history of malignant neoplasm of liver; Z90.49 Acquired absence of other specified parts of digestive tract; Z79.84 Long term (current) use of oral hypoglycemic drugs; Z87.891 Personal history of nicotine dependence; Z88.0 Allergy status to penicillin
CPT/HCPCS: 99222-AI; G0378; J1815; J2405; J2550; J3475; J3480; J7030

== ENCOUNTER 2019-06-09 09:44 | Emergency (ER) | payer OTHER ==
[2008-11-19 13:06] VITALS: BP 125/71
[~2019-06-09] VITALS: Ht 165.1 cm; Wt 68.2 kg
[~2019-06-09 09:44] MED LIST changes: +CALCIUM CITRAT950 MG PO; +ENULOSE10 GM/151 PO; +POTASSIUM GLUC595 M1 PO; +VITAMIN A10k PO; +VITAMIN D 50,1.25 MG PO
[2019-06-09 10:43] LABS: COLLECTION METHOD CLEAN CATCH
[2019-06-09 10:46] LABS: BASO % 0.9 % (0.0-2.0); EOS # 0.2 (0.0-0.7); EOS % 5.1 % (0-4.0); GRAN # 2.6 (1.4-6.5); GRAN % 60.7 % (42.2-75.2); HEMOGLOBIN 12.5 g/dl (13.5-18.0); LYMPH % 22.2 % (20.0-51.0); MEAN CELL VOLUME 98 fl (80.0-100.0); MEAN CORPUSCULAR HEMOGLOBIN 32 pg (27.0-31.0); MEAN CORPUSCULAR HGB CONC 33 g/dl (33.0-37.0); MEAN PLATELET VOLUME 11.4 fl (7.4-10.4); MONO # 0.5 (0.1-0.6); MONO % 10.9 % (1.7-9.3); PLATELET COUNT 84 K/mm3 (130-400); RED BLOOD COUNT 3.88 M/mm3 (4.20-5.60); REDCELL DISTRIBUTION WIDTH-CV 16.2 % (11.5-14.5)
[2019-06-09 10:50] LABS: MUCOUS Present /lpf; PH 7 (5-8); SQUAMOUS EPITHELIAL None Seen /hpf; URINE APPEARANCE Clear; URINE BACTERIA None Seen /hpf; URINE BILIRUBIN Negative (NEGATIVE); URINE BLOOD Negative (NEGATIVE); URINE COLOR Amber; URINE GLUCOSE Negative (NEGATIVE); URINE KETONE Negative (NEGATIVE); URINE LEUKOCYTE ESTERASE Negative (NEGATIVE); URINE NITRATE Negative (NEGATIVE); URINE PROTEIN(semi-quant) Negative (NEGATIVE); URINE RBC 0-2 /hpf; URINE UROBILINOGEN Negative (NEGATIVE)
[2019-06-09 11:00] LABS: ALBUMIN 2.5 gm/dL (3.5-5.0); BILIRUBIN,TOTAL 5.3 mg/dL (0.0-1.0); C-REACTIVE PROTEIN 1.7 mg/dL (0.0-0.9); CALCIUM 8.1 mg/dL (8.4-10.2); CREATININE, serum 0.61 (0.66-1.25); POTASSIUM 3.3 mmol/L (3.4-5.0)
[2019-06-09] MEDS ORDERED: K-TAB10 PO (12:44)
[2019-06-09 13:15] VITALS: BP 135/86; PULSE 88; TEMP 99.2
== END 2019-06-09 10:00 | disposition home or self-care (01) ==
LOC: COL.ER 09:44
PROVIDERS: Family Medicine
DX: K72.90 Hepatic failure, unspecified without coma (principal); C22.8 Malignant neoplasm of liver, primary, unspecified as to type
CPT/HCPCS: J7030

== ENCOUNTER 2019-07-06 18:52 | Inpatient (IN) | payer OTHER ==
[~2019-07-06] VITALS: Ht 195.6 cm; Wt 73.3 kg
[~2019-07-06 18:52] MED LIST changes: +K-TAB10 PO
[2019-07-06 19:28] LABS: BASO % 0.5 % (0.0-2.0); EOS # 0.4 (0.0-0.7); GRAN # 3.7 (1.4-6.5); GRAN % 58.8 % (42.2-75.2); HEMOGLOBIN 11.8 g/dl (13.5-18.0); LYMPH # 1.4 (1.2-3.4); LYMPH % 21.7 % (20.0-51.0); MEAN CELL VOLUME 99 fl (80.0-100.0); MEAN CORPUSCULAR HEMOGLOBIN 33 pg (27.0-31.0); MEAN CORPUSCULAR HGB CONC 33 g/dl (33.0-37.0); MEAN PLATELET VOLUME 11.1 fl (7.4-10.4); MONO # 0.8 (0.1-0.6); MONO % 12.5 % (1.7-9.3); PLATELET COUNT 88 K/mm3 (130-400); RED BLOOD COUNT 3.61 M/mm3 (4.20-5.60); REDCELL DISTRIBUTION WIDTH-CV 15.5 % (11.5-14.5)
[2019-07-06 19:33] LABS: ALANINE AMINOTRANSFERASE 29 U/L (21-72); ALBUMIN 2.3 gm/dL (3.5-5.0); ALKALINE PHOSPHATASE 317 U/L (50-136); ANION GAP 5 mmol/L (7-16); AST,SGOT 69 U/L (15-37); BILIRUBIN,TOTAL 5.3 mg/dL (0.0-1.0); BLOOD UREA NITROGEN 3 mg/dL (9-20); C-REACTIVE PROTEIN 2.2 mg/dL (0.0-0.9); CARBON DIOXIDE 27 mmol/L (22-30); CHLORIDE 104 mmol/L (98-107); CREATININE, serum 0.63 (0.66-1.25); GLUCOSE 362 mg/dL (74-106); LIPASE 108 U/L (23-300); POTASSIUM 4.3 mmol/L (3.4-5.0); SODIUM 135 mmol/L (137-145); TOTAL PROTEIN 6.8 gm/dL (6.4-8.2)
[2019-07-06 19:39] LABS: INR 1.9 (0.8-3.0); PROTHROMBIN TIME 23.2 SECONDS (9.7-12.8)
[2019-07-06 19:48] LABS: LACTIC ACID 3.1 mmol/L (0.4-2.0)
[2019-07-06 19:48] LABS: TROPONIN-I < 0.012 ng/mL (0.000-0.035)
[2019-07-06 19:56] LABS: HEMATOCRIT 35.9 % (42.0-52.0)
[2019-07-06 23:47] VITALS: BP 115/60; TEMP 98.9
[2019-07-07] VITALS (7 sets, daily range): BP systolic 103–141; BP diastolic 57–71; PULSE 71–84; TEMP 98.1–98.9
--- NOTE | 2019-07-07 | NUR ---
Report received from ER nurse. Arrived via wheelchair to room 313. Oriented to room/policy. Language line used for admission assessment. Med Rec not completed-states he doesnt know his meds/dosing his spouse does. Attempt x2 to speak with spouse but did not answer. Plan of care discussed for pain control, diet as well as high s/s insulin for elevated blood sugars. Verbalizes understanding. Denies question or concerns. Call light in reach/bed in low position/wheels locked. Will monitor.
[2019-07-07] MEDS ORDERED: GLUCOPHAGE XR500 M1 PO (00:24)
--- NOTE | 2019-07-07 02:45 | NUR ---
Hospitalist notified 2200 insulin not given prior to arrival. New orders received to check bedside glucose now with high sliding scale coverage. Glucose 168-[address] order-provided light snack. Will monitor.
[2019-07-07 06:06] LABS: BASO % 0.5 % (0.0-2.0); EOS # 0.4 (0.0-0.7); EOS % 6.5 % (0-4.0); GRAN # 3.3 (1.4-6.5); GRAN % 51.1 % (42.2-75.2); HEMOGLOBIN 10.4 g/dl (13.5-18.0); LYMPH # 1.8 (1.2-3.4); LYMPH % 28.4 % (20.0-51.0); MEAN CELL VOLUME 99 fl (80.0-100.0); MEAN CORPUSCULAR HEMOGLOBIN 33 pg (27.0-31.0); MEAN CORPUSCULAR HGB CONC 33 g/dl (33.0-37.0); MEAN PLATELET VOLUME 10.8 fl (7.4-10.4); MONO # 0.8 (0.1-0.6); PLATELET COUNT 79 K/mm3 (130-400); REDCELL DISTRIBUTION WIDTH-CV 15.4 % (11.5-14.5)
[2019-07-07 06:18] LABS: ALBUMIN 1.8 gm/dL (3.5-5.0); BILIRUBIN,TOTAL 3.6 mg/dL (0.0-1.0); CALCIUM 7.7 mg/dL (8.4-10.2); CREATININE, serum 0.63 (0.66-1.25); TOTAL PROTEIN 5.5 gm/dL (6.4-8.2)
[2019-07-07 06:25] LABS: HEMATOCRIT 31.6 % (42.0-52.0)
--- NOTE | 2019-07-07 07:00 | NUR ---
Bedside shift report received from JOSH Hightower. PT in bed resting , feeling well and denies needs, will continue ester onitor.
[2019-07-07] MEDS ORDERED: DESYREL 50MG50 MG PO (09:20)
[2019-07-07] MEDS ORDERED: DAZIDOX10 MG PO (09:30)
--- NOTE | 2019-07-07 09:54 | NUR ---
Assessmetn charted and med rec completed. at bedside. Pt c/o pain to R side at 8/10, PRN morphine provided. Pt doing well, ambulates well with PT, SBA. Doing well, hungry but waiting on plan to determine if thora is needed so remaining NPO. INT to LFA. Will contineu to monitor.
[2019-07-07 10:51] LABS: INR 2.2 (0.8-3.0); PROTHROMBIN TIME 25.7 SECONDS (9.7-12.8)
--- NOTE | 2019-07-07 14:22 | NUR ---
Supervising Deputy met with the patient and patient's , Blanca (ph#[phone]) to discuss discharge planning. Patient speaks limited nauruan so Blanca acted as metal casket maker. Patient and Blanca live in [place]. Patient sees Dr. Motley for primary care and obtains medications from [facility] with no difficulties. Patient is independent with ADLS and does not have DME. Patient does not have DPOA-HC but was interested in taking home form. SW provided. Patient plans to return home upon discharge. SW will follow as needed.
--- NOTE | 2019-07-07 14:29 | NUR ---
Started 1 unit of FFP at this time, verified with second RN. Discussed s/sx of transfusion reaction, will remain with pt for first 15 minutes.
--- NOTE | 2019-07-07 14:44 | NUR ---
Pt doing well, deneis s/sx of a transfusion reaction, increasing rate. PRN painh pill provided per request. Will continue to monitor.
[2019-07-07 15:20] LABS: INR 1.7 (0.8-3.0); PROTHROMBIN TIME 20.6 SECONDS (9.7-12.8)
--- NOTE | 2019-07-07 15:37 | NUR ---
FFP finished at this time, pt transported via w/c with IR staff for thoracentesis. Will await return.
--- NOTE | 2019-07-07 15:48 | NUR ---
[facility] for discharge planning is Aye Nuñez #[phone] [id number] and for home health #[phone].
[2019-07-07 17:39] LABS: GLUCOSE,PLEURAL FLUID 141 mg/dL
[2019-07-07 17:57] LABS: TOTAL PROTEIN,PLEURAL FLUID < 2.0 gm/dL
--- NOTE | 2019-07-07 18:02 | NUR ---
Pt doing well, went down for thoracentecis and returned from that. Bandaid on R scapular area is CDI. Pt ate light meal after returning to room, tolerated well, anticipating supper this evening. and family at bedside, denies needs, will give bedside shift report to nightshift nurse who will resume care.
[2019-07-08 00:37] VITALS: BP 117/62; PULSE 76; TEMP 98.7
[2019-07-08 04:58] VITALS: BP 106/55; PULSE 85; TEMP 98.2
[2019-07-08 07:03] LABS: BASO % 0.5 % (0.0-2.0); EOS # 0.3 (0.0-0.7); EOS % 5.6 % (0-4.0); GRAN # 3.3 (1.4-6.5); GRAN % 57.4 % (42.2-75.2); HEMOGLOBIN 10.5 g/dl (13.5-18.0); LYMPH # 1.2 (1.2-3.4); LYMPH % 21.4 % (20.0-51.0); MEAN CELL VOLUME 98 fl (80.0-100.0); MEAN CORPUSCULAR HEMOGLOBIN 33 pg (27.0-31.0); MEAN CORPUSCULAR HGB CONC 33 g/dl (33.0-37.0); MEAN PLATELET VOLUME 11.2 fl (7.4-10.4); MONO # 0.9 (0.1-0.6); MONO % 14.8 % (1.7-9.3); PLATELET COUNT 102 K/mm3 (130-400); REDCELL DISTRIBUTION WIDTH-CV 15.1 % (11.5-14.5)
[2019-07-08 07:07] LABS: INR 1.8 (0.8-3.0); PROTHROMBIN TIME 21.7 SECONDS (9.7-12.8)
[2019-07-08 07:12] LABS: HEMATOCRIT 31.4 % (42.0-52.0)
[2019-07-08 07:14] LABS: BILIRUBIN,TOTAL 3.8 mg/dL (0.0-1.0); CALCIUM 8.2 mg/dL (8.4-10.2); CREATININE, serum 0.6 (0.66-1.25); POTASSIUM 3.6 mmol/L (3.4-5.0); TOTAL PROTEIN 5.7 gm/dL (6.4-8.2)
[2019-07-08 09:36] VITALS: BP 119/74; PULSE 85; TEMP 98.2
[2019-07-08 12:15] VITALS: BP 114/58; PULSE 82; TEMP 98.2
--- NOTE | 2019-07-08 16:45 | NUR ---
Pt stable this afternoon. Pt pain managed with PRN medications. Pt states SOB has significantly decreases after thoracentesis. Pt given discharge orders and education provided with family member present who speaks polish. Pt has all belongings. Pt IV discontinued and tip intact and no redness or infiltration. Pt escorted out via wheelchair without incident. Pt denies needs at this time.
== END 2019-07-08 16:45 | disposition home or self-care (01) | DRG 187 ==
LOC: COL.ER 18:52 → MEDICAL 21:50
PROVIDERS: Emergency Medicine; Hospitalist; Nurse Practitioner Family; Physician Assistant; ADMIT Internal Medicine
PROC: 0W993ZZ Drainage of Right Pleural Cavity, Percutaneous Approach (ICD-10-PCS; principal; 2019-07-07)
PROC: BB4BZZZ Ultrasonography of Pleura (ICD-10-PCS; 2019-07-07)
DX: J90 Pleural effusion, not elsewhere classified (principal); E87.2 Acidosis; J98.11 Atelectasis; K70.30 Alcoholic cirrhosis of liver without ascites; E11.9 Type 2 diabetes mellitus without complications; D69.6 Thrombocytopenia, unspecified; Z96.89 Presence of other specified functional implants; K21.9 Gastro-esophageal reflux disease without esophagitis; E80.6 Other disorders of bilirubin metabolism; D50.0 Iron deficiency anemia secondary to blood loss (chronic); Z90.49 Acquired absence of other specified parts of digestive tract; Z87.891 Personal history of nicotine dependence; Z85.05 Personal history of malignant neoplasm of liver
CPT/HCPCS: 99222-AI; 99239; C9113; J1815; J2270; J2405; J3010; J7030; Q9967

== ENCOUNTER 2019-11-01 18:04 | Emergency (ER) | payer OTHER ==
[2008-11-19 13:06] VITALS: BP 125/71
[~2019-11-01] VITALS: Ht 165.1 cm; Wt 59.1 kg
[~2019-11-01 18:04] MED LIST changes: +DAZIDOX10 MG PO; +DESYREL 50MG50 MG PO
[2019-11-01 18:14] VITALS: TEMP 98.4
[2019-11-01 19:01] LABS: BASO # 0.1 (0.0-0.2); BASO % 0.8 % (0.0-2.0); EOS # 0.3 (0.0-0.7); EOS % 4.8 % (0-4.0); GRAN # 4.4 (1.4-6.5); GRAN % 66.8 % (42.2-75.2); HEMATOCRIT 38.4 % (42.0-52.0); HEMOGLOBIN 12.8 g/dl (13.5-18.0); LYMPH # 1.1 (1.2-3.4); LYMPH % 16.8 % (20.0-51.0); MEAN CELL VOLUME 98 fl (80.0-100.0); MEAN CORPUSCULAR HEMOGLOBIN 33 pg (27.0-31.0); MEAN CORPUSCULAR HGB CONC 33 g/dl (33.0-37.0); MEAN PLATELET VOLUME 11.3 fl (7.4-10.4); MONO # 0.7 (0.1-0.6); MONO % 10.6 % (1.7-9.3); PLATELET COUNT 116 K/mm3 (130-400); RED BLOOD COUNT 3.93 M/mm3 (4.20-5.60)
[2019-11-01 19:06] LABS: INR 1.8 (0.8-3.0); PROTHROMBIN TIME 21.4 SECONDS (9.7-12.8)
[2019-11-01 19:13] LABS: C-REACTIVE PROTEIN 2.3 mg/dL (0.0-0.9); LIPASE 124 U/L (23-300)
[2019-11-01 19:25] LABS: ALCOHOL(ethanol),MEDICAL < 10 mg/dL; TROPONIN-I < 0.012 ng/mL (0.000-0.035)
[2019-11-01 20:22] LABS: BILIRUBIN,TOTAL 4.8 mg/dL (0.0-1.0); CALCIUM 8.7 mg/dL (8.4-10.2); CREATININE, serum 0.64 (0.66-1.25); POTASSIUM 4.6 mmol/L (3.4-5.0); TOTAL PROTEIN 6.2 gm/dL (6.4-8.2)
[2019-11-01 20:33] LABS: COLLECTION METHOD CLEAN CATCH
[2019-11-01] MEDS ORDERED: ALDACTONE50 MG PO (20:44)
[2019-11-01] MEDS ORDERED: VITAMIN A10k PO (20:45)
[2019-11-01] MEDS ORDERED: MASON NATURAL2000 IU PO (20:45)
[2019-11-01 20:59] LABS: MUCOUS Present /lpf; PH 8 (5-8); SQUAMOUS EPITHELIAL 0-2 /hpf; URINE APPEARANCE Clear; URINE BACTERIA Rare /hpf; URINE BILIRUBIN Negative (NEGATIVE); URINE BLOOD Negative (NEGATIVE); URINE COLOR Amber; URINE GLUCOSE Negative (NEGATIVE); URINE KETONE Negative (NEGATIVE); URINE LEUKOCYTE ESTERASE Negative (NEGATIVE); URINE NITRATE Negative (NEGATIVE); URINE PROTEIN(semi-quant) Negative (NEGATIVE); URINE UROBILINOGEN >=4.0 mg/dL (NEGATIVE)
[2019-11-01 21:02] VITALS: BP 120/70; PULSE 80
== END 2019-11-01 21:31 | disposition home or self-care (01) ==
LOC: COL.ER 18:04
PROVIDERS: Emergency Medicine
DX: C22.9 Malignant neoplasm of liver, not specified as primary or secondary (principal); K72.90 Hepatic failure, unspecified without coma; K74.60 Unspecified cirrhosis of liver; R41.0 Disorientation, unspecified; E11.9 Type 2 diabetes mellitus without complications; Z79.84 Long term (current) use of oral hypoglycemic drugs
CPT/HCPCS: J2405

== ENCOUNTER 2019-11-24 16:51 | Inpatient (IN) | payer OTHER ==
[~2019-11-24] VITALS: Ht 165.1 cm; Wt 70.6 kg
[~2019-11-24 16:51] MED LIST changes: +MASON NATURAL2000 IU PO
[2019-11-24 18:23] LABS: BASO % 0.5 % (0.0-2.0); EOS # 0.4 (0.0-0.7); EOS % 6.9 % (0-4.0); GRAN # 3.5 (1.4-6.5); GRAN % 58.6 % (42.2-75.2); HEMOGLOBIN 11.7 g/dl (13.5-18.0); LYMPH # 1.2 (1.2-3.4); LYMPH % 19.8 % (20.0-51.0); MEAN CELL VOLUME 96 fl (80.0-100.0); MEAN CORPUSCULAR HEMOGLOBIN 32 pg (27.0-31.0); MEAN CORPUSCULAR HGB CONC 33 g/dl (33.0-37.0); MEAN PLATELET VOLUME 11.7 fl (7.4-10.4); MONO # 0.8 (0.1-0.6); MONO % 13.9 % (1.7-9.3); PLATELET COUNT 104 K/mm3 (130-400); REDCELL DISTRIBUTION WIDTH-CV 14.8 % (11.5-14.5)
[2019-11-24 18:31] LABS: HEMATOCRIT 35.6 % (42.0-52.0)
[2019-11-24 18:32] LABS: ALANINE AMINOTRANSFERASE 39 U/L (4-49); ALBUMIN 2.4 gm/dL (3.5-5.0); ALKALINE PHOSPHATASE 540 U/L (50-136); ANION GAP 2 mmol/L (7-16); AST,SGOT 61 U/L (15-37); BILIRUBIN,TOTAL 3.2 mg/dL (0.0-1.0); BLOOD UREA NITROGEN 6 mg/dL (9-20); CALCIUM 8.3 mg/dL (8.4-10.2); CARBON DIOXIDE 26 mmol/L (22-30); CHLORIDE 106 mmol/L (98-107); CREATININE, serum 0.66 (0.66-1.25); LIPASE 292 U/L (23-300); POTASSIUM 3.9 mmol/L (3.4-5.0); SODIUM 134 mmol/L (137-145); TOTAL PROTEIN 6.7 gm/dL (6.4-8.2)
[2019-11-24 18:35] LABS: INR 1.8 (0.8-3.0); PROTHROMBIN TIME 21.8 SECONDS (9.7-12.8)
[2019-11-24 18:48] LABS: GLUCOSE 556 mg/dL (74-106); TROPONIN-I < 0.012 ng/mL (0.000-0.035)
[2019-11-24 20:21] VITALS: BP 133/74; PULSE 97; TEMP 99.6
[2019-11-24] MEDS ORDERED: KLOR-CON SPRIN10 MEQ PO (22:52)
[2019-11-24] MEDS ORDERED: ENULOSE10 GM/151 PO (23:00)
[2019-11-24] MEDS ORDERED: VITAMIN D 50,1.25 MG PO (23:04)
[2019-11-24] MEDS ORDERED: FLOMAX 0.40.4 MG/CAP PO (23:07)
[2019-11-24] MEDS ORDERED: AMBIEN 5MG TABLE5 MG PO (23:08)
[2019-11-24] MEDS ORDERED: ZOFRAN ODT4 MG PO (23:11)
--- NOTE | 2019-11-24 23:30 | NUR ---
Took over patient care at approximately 2044. Patient denies having pain and discomfort. Peripheral IV to left AC flushed. Site without redness, warmth, swelling, and pain. Did report SOB and dyspnea. Oxygen level 90% RA. Updated RT and put on oxygen at 2 L/min via NC. Stated that it helped. LS CTA throughout except diminished in right lower lobe. HRR. On telemetry. Capillary refill less than 3 seconds. Non-tenting skin turgor. BSAx4. Abdomen soft and non-tender. Denies nausea and upset stomach. No edema. Talked with patient regarding plan for thoracentesis tomorrow. Voiced understanding. Notified patient that he is not to eat or drink anything after midnight. Voices understanding, and given sandwich around 2200 as requested. Voices no questions, needs, or concerns at this time. Patient resting in bed watching TV. Call light is within reach.
[2019-11-24 23:37] VITALS: BP 131/57; PULSE 83; TEMP 99.2
[2019-11-25 03:21] VITALS: BP 111/52; PULSE 71; TEMP 99.6
--- NOTE | 2019-11-25 06:05 | NUR ---
Patient has denied having pain and discomfort this shift. Has been resting in bed with call light within reach. Has been NPO since midnight for possible thoracentesis on right side today. Voices no questions, needs, or concerns. Resting in bed with call light within reach.
[2019-11-25 06:54] LABS: BASO % 0.4 % (0.0-2.0); EOS # 0.5 (0.0-0.7); EOS % 9.6 % (0-4.0); GRAN # 2.9 (1.4-6.5); GRAN % 55.9 % (42.2-75.2); LYMPH # 1.1 (1.2-3.4); LYMPH % 20.3 % (20.0-51.0); MEAN CELL VOLUME 96 fl (80.0-100.0); MEAN CORPUSCULAR HGB CONC 33 g/dl (33.0-37.0); MEAN PLATELET VOLUME 11.9 fl (7.4-10.4); MONO # 0.7 (0.1-0.6); MONO % 13.6 % (1.7-9.3); PLATELET COUNT 75 K/mm3 (130-400); RED BLOOD COUNT 3.02 M/mm3 (4.20-5.60); REDCELL DISTRIBUTION WIDTH-CV 14.8 % (11.5-14.5)
[2019-11-25 06:57] LABS: INR 2.1 (0.8-3.0); PROTHROMBIN TIME 24.7 SECONDS (9.7-12.8)
[2019-11-25 07:03] LABS: CALCIUM 7.7 mg/dL (8.4-10.2); CREATININE, serum 0.49 (0.66-1.25); POTASSIUM 3.3 mmol/L (3.4-5.0)
[2019-11-25 07:12] LABS: HEMATOCRIT 28.9 % (42.0-52.0); HEMOGLOBIN 9.6 g/dl (13.5-18.0); MEAN CORPUSCULAR HEMOGLOBIN 32 pg (27.0-31.0)
[2019-11-25 08:05] VITALS: BP 114/53; PULSE 80; TEMP 98.4
--- NOTE | 2019-11-25 08:30 | NUR ---
Patient in bed resting. Alert and oriented x 3, assessment complete. Patient denies pain at this time. Expiratory wheezing noted to right lobe- all sanchez. On 2L via NC, states he still feels short of breath. SCDs to BLE. Denies further needs at this time.
[2019-11-25 11:52] VITALS: BP 92/61; PULSE 85; TEMP 98.7
[2019-11-25 16:43] VITALS: BP 98/64; PULSE 91; TEMP 97.5
--- NOTE | 2019-11-25 20:30 | NUR ---
Assessment complete. Watching televion. Denies pain. Denies needs at this time.
[2019-11-25 20:35] VITALS: BP 109/52; PULSE 83; TEMP 99.4
[2019-11-26] VITALS (8 sets, daily range): BP systolic 102–128; BP diastolic 54–65; PULSE 77–92; TEMP 97.6–100
[2019-11-26 06:25] LABS: BASO % 0.4 % (0.0-2.0); EOS # 0.3 (0.0-0.7); EOS % 6.5 % (0-4.0); GRAN # 3.1 (1.4-6.5); HEMOGLOBIN 10.4 g/dl (13.5-18.0); LYMPH # 0.8 (1.2-3.4); LYMPH % 16.2 % (20.0-51.0); MEAN CELL VOLUME 95 fl (80.0-100.0); MEAN CORPUSCULAR HEMOGLOBIN 31 pg (27.0-31.0); MEAN CORPUSCULAR HGB CONC 33 g/dl (33.0-37.0); MEAN PLATELET VOLUME 11.8 fl (7.4-10.4); MONO # 0.7 (0.1-0.6); MONO % 14.5 % (1.7-9.3); PLATELET COUNT 84 K/mm3 (130-400); RED BLOOD COUNT 3.31 M/mm3 (4.20-5.60); REDCELL DISTRIBUTION WIDTH-CV 14.7 % (11.5-14.5)
[2019-11-26 06:31] LABS: PROTHROMBIN TIME 23.4 SECONDS (9.7-12.8)
[2019-11-26 06:37] LABS: ALBUMIN 1.9 gm/dL (3.5-5.0); BILIRUBIN,TOTAL 3.6 mg/dL (0.0-1.0); CREATININE, serum 0.51 (0.66-1.25); POTASSIUM 3.7 mmol/L (3.4-5.0); TOTAL PROTEIN 5.8 gm/dL (6.4-8.2)
[2019-11-26 07:00] LABS: HEMATOCRIT 31.3 % (42.0-52.0)
--- NOTE | 2019-11-26 08:47 | NUR ---
Pt resting in bed, ambulated to bathroom with steady gait. Pt asking questions about current illness, and today's thoracentesis.
--- NOTE | 2019-11-26 18:51 | NUR ---
Pt had an eventful day. Pt started day NPO for a thoracentesis, he then needed Fresh Frozen Plasma prophylactically for the procedure. Pulmonology came to do the thora. Thoracentesis was unsuccessful. Pt had pain post procedure. Pt has no other complaints from the day. Will go NPO at midnight. No further concerns
--- NOTE | 2019-11-26 19:00 | NUR ---
Pt report received from Barbara MORENO at bedside. Pt is resting peacefully in bed at this time with call light within reach and beverage on bedside table within reach. Pt reports that he will need a pain pill "soon". No s/s of distress noted. Will continue to monitor.
--- NOTE | 2019-11-26 23:15 | NUR ---
Pt has had a peaceful shift so far and frequently found to be on the phone with his friends and family. Pt has had pain at about 2014 requiring this publications writer to notify Yadi ABDALLA and an extra dose of Roxicodone was ordered. At this time Pt states that he is foing fine and has pain that is well controlled. Pt has been up to use restroom during the shift without difficulty. Pt remains in stable condition at this time with call light within reach. Will continue to monitor.
[2019-11-27] VITALS (13 sets, daily range): BP systolic 94–128; BP diastolic 39–86; PULSE 68–96; TEMP 98–99.8
--- NOTE | 2019-11-27 00:05 | NUR ---
Pt has become NPO at midnight and beverages have been removed from his room and Pt has been reminded that he is not to eat or drink until his procedure has been completed.
--- NOTE | 2019-11-27 05:10 | NUR ---
Pt has had a peacefull night with no restlessness or distress noted. Pt has been sleeping peacefully for a few hours after receiving his PRN pain medication as charted on OCT. Call light is within reach and Pt remains NPO. Will continue to monitor.
[2019-11-27 06:44] LABS: BASO % 0.2 % (0.0-2.0); EOS # 0.6 (0.0-0.7); EOS % 11.4 % (0-4.0); GRAN # 2.2 (1.4-6.5); GRAN % 44.8 % (42.2-75.2); HEMOGLOBIN 10.2 g/dl (13.5-18.0); LYMPH # 1.4 (1.2-3.4); LYMPH % 27.9 % (20.0-51.0); MEAN CELL VOLUME 96 fl (80.0-100.0); MEAN CORPUSCULAR HEMOGLOBIN 32 pg (27.0-31.0); MEAN CORPUSCULAR HGB CONC 33 g/dl (33.0-37.0); MEAN PLATELET VOLUME 11.5 fl (7.4-10.4); MONO # 0.8 (0.1-0.6); MONO % 15.5 % (1.7-9.3); PLATELET COUNT 90 K/mm3 (130-400); RED BLOOD COUNT 3.19 M/mm3 (4.20-5.60); REDCELL DISTRIBUTION WIDTH-CV 14.6 % (11.5-14.5)
[2019-11-27 06:57] LABS: BILIRUBIN,TOTAL 3.3 mg/dL (0.0-1.0); CALCIUM 8.1 mg/dL (8.4-10.2); CREATININE, serum 0.74 (0.66-1.25); MAGNESIUM 1.5 mg/dL (1.6-2.3); TOTAL PROTEIN 5.7 gm/dL (6.4-8.2)
[2019-11-27 07:11] LABS: HEMATOCRIT 30.7 % (42.0-52.0)
--- NOTE | 2019-11-27 07:43 | NUR ---
Pt report given to Marion RN at bedside. Pt reports his current pain level of 3/10 and remains in a positive mood. Pt states that he would like a shower after his procedure. Call light within reach and no s/s of distress noted.
--- NOTE | 2019-11-27 09:41 | NUR ---
PT REPORTING PAIN 3/10, DID NOT NEED PAIN MEDICATION, PT PLEASANT AND TALKATIVE, BED IN LOW POSITION, CALL LIGHT WITHIN REACH, DISCUSSED PROCEDURE PLANNED FOR TODAY, CONSENT SIGNED, TALKED TO ULTRASOUND ABOUT LAB VALUES, MAG INFUSED AND DISCONNECTED, NO OTHER NEEDS AT THIS TIME.
--- NOTE | 2019-11-27 10:23 | NUR ---
Cleaner Window met with patient to discuss discharge planning. SW utilized logging engineer line as patient speaks [place]. Patient lives in [place] with his , Blanca (ph#[phone]). Patient could not remember the name of his primary care physician but reports he sees the PCP in [address]. Patient attempted to contact his to ask the name of the PCP but she did not answer. Patient obtains medications from [facility]. Patient does not use any DME and reports independence with ADLS. Patient plans to return home upon discharge with either his or sister providing transportation. SW to continue to follow as needed.
--- NOTE | 2019-11-27 11:56 | NUR ---
First visit from the test engineer. No needs right now.
--- NOTE | 2019-11-27 12:43 | NUR ---
PT BACK ON FLOOR FROM THORACENTESIS, CURRENTLY IN BED EATING LUNCH, NO OTHER NEEDS AT THIS TIME.
--- NOTE | 2019-11-27 17:28 | NUR ---
PT STILL COMPLAINING OF PAIN 03/01, STATED THE MORPHINE HELPED FOR A LITTE BIT, PT TOOK OXYGEN OFF, SATTING IN THE HIGH 90'S SO OXYGEN TURNED OFF. PT RECEIVED 6 UNITS OF INSULIN, NO OTHER NEEDS AT THIS TIME. DINNER TRAY AT BEDSIDE NOW.
--- NOTE | 2019-11-27 18:35 | NUR ---
Pt report received from nallely RN. Pt is resting peacefully in bed with no s/s of distress with eyes closed. Call light within reach. Will continue to monitor. Report states that Pt thoracentesis went well but Pt has c/o pain during the afternoon.
--- NOTE | 2019-11-27 23:33 | NUR ---
Pt reports that he received pain relief from previous PRN dose of roxicodone and that when he is stationary his pain is down to a 5/10 but when he turns, repositions or gets up to use restroom pain exacerbates up to 8-9/10 and is located at his right lateral back where he had a thoracentesis this morning. Call light is at patients side and no s/s of distress is noted. Will continue to monitor.
[2019-11-28 00:39] VITALS: BP 105/66; PULSE 100; TEMP 101.1
[2019-11-28 04:54] VITALS: BP 111/72; PULSE 94; TEMP 99.7
--- NOTE | 2019-11-28 05:41 | NUR ---
Pt is resting in bed with eyes open and complaints of pain with activity. Pt states that he can wait until next dose of roxicodone is due at about 0700. Pt is compliant with care and medication regimen. Pt has slept most of the night after his recent PRN dose of Roxicodone although he has had s/s of pain as evidenced by his visage while sleeping. Pt remains in stable condition at this time with no s/s of distress noted. Pt band-aid remains in place to his left lateral back with no drainage noted. Will continue to monitor
--- NOTE | 2019-11-28 05:49 | NUR ---
Call light remains within reach
--- NOTE | 2019-11-28 07:01 | NUR ---
Pt report given to Barbara MORENO
[2019-11-28 07:39] LABS: BASO % 0.5 % (0.0-2.0); EOS # 0.5 (0.0-0.7); EOS % 8.8 % (0-4.0); GRAN # 3.2 (1.4-6.5); GRAN % 51.9 % (42.2-75.2); LYMPH # 1.4 (1.2-3.4); LYMPH % 23.5 % (20.0-51.0); MEAN CELL VOLUME 96 fl (80.0-100.0); MEAN CORPUSCULAR HEMOGLOBIN 32 pg (27.0-31.0); MEAN CORPUSCULAR HGB CONC 33 g/dl (33.0-37.0); MEAN PLATELET VOLUME 11.2 fl (7.4-10.4); MONO # 0.9 (0.1-0.6); PLATELET COUNT 98 K/mm3 (130-400); RED BLOOD COUNT 3.48 M/mm3 (4.20-5.60); REDCELL DISTRIBUTION WIDTH-CV 14.6 % (11.5-14.5)
[2019-11-28 07:41] LABS: HEMATOCRIT 33.4 % (42.0-52.0)
[2019-11-28 07:57] LABS: ALBUMIN 2.1 gm/dL (3.5-5.0); CALCIUM 8.1 mg/dL (8.4-10.2); CREATININE, serum 0.62 (0.66-1.25); MAGNESIUM 1.4 mg/dL (1.6-2.3)
[2019-11-28 08:09] LABS: INR 1.9 (0.8-3.0); PROTHROMBIN TIME 22.7 SECONDS (9.7-12.8)
[2019-11-28 08:48] VITALS: BP 112/67; PULSE 90; TEMP 98.6
--- NOTE | 2019-11-28 13:32 | NUR ---
Radio Repair Teacher spoke with JOSH Jimenez who advised patient has been independent in his room. SW to continue to follow for discharge needs.
[2019-11-28 13:34] LABS: COLLECTION METHOD CLEAN CATCH
[2019-11-28 13:42] LABS: MUCOUS Present /lpf; PH 6 (5-8); SQUAMOUS EPITHELIAL 0-2 /hpf; URINE APPEARANCE Clear; URINE BACTERIA None Seen /hpf; URINE BILIRUBIN Negative (NEGATIVE); URINE BLOOD 1+ (NEGATIVE); URINE COLOR Yellow; URINE GLUCOSE Negative (NEGATIVE); URINE KETONE Negative (NEGATIVE); URINE LEUKOCYTE ESTERASE Negative (NEGATIVE); URINE NITRATE Negative (NEGATIVE); URINE PROTEIN(semi-quant) Negative (NEGATIVE); URINE RBC 0-2 /hpf; URINE UROBILINOGEN Negative (NEGATIVE)
[2019-11-28 17:03] VITALS: BP 113/65; PULSE 87; TEMP 99.3
--- NOTE | 2019-11-28 20:00 | NUR ---
Assessment complete. At time of assessment, patient is sitting awake in bed watching TV. He complains of pain 8/10 in lower back, near thoracentesis site. Morphine administered for this. Will continue to monitor.
[2019-11-28 20:10] VITALS: BP 108/64; PULSE 83; TEMP 98.7
--- NOTE | 2019-11-28 21:22 | NUR ---
Pt had uneventful day. Report given to JOSH Scanlon.
[2019-11-28 23:58] VITALS: BP 120/107; PULSE 86; TEMP 98.8
[2019-11-29 04:30] VITALS: BP 111/63; PULSE 85; TEMP 98.6
--- NOTE | 2019-11-29 06:08 | NUR ---
Patient has complained of back pain twice throughout the night. Morphine administered for pain. Otherwise, patient has had a restful night. Patient has remained afebrile. Will continue to monitor.
[2019-11-29 07:05] VITALS: BP 94/54; PULSE 80; TEMP 98.3
[2019-11-29 08:05] LABS: BASO % 0.2 % (0.0-2.0); EOS # 0.6 (0.0-0.7); GRAN # 2.1 (1.4-6.5); GRAN % 46.4 % (42.2-75.2); LYMPH # 1.1 (1.2-3.4); MEAN CELL VOLUME 96 fl (80.0-100.0); MEAN CORPUSCULAR HGB CONC 33 g/dl (33.0-37.0); MEAN PLATELET VOLUME 11.6 fl (7.4-10.4); MONO # 0.8 (0.1-0.6); MONO % 17.2 % (1.7-9.3); PLATELET COUNT 94 K/mm3 (130-400); RED BLOOD COUNT 3.05 M/mm3 (4.20-5.60); REDCELL DISTRIBUTION WIDTH-CV 14.5 % (11.5-14.5)
[2019-11-29 08:06] LABS: HEMATOCRIT 29.2 % (42.0-52.0); HEMOGLOBIN 9.7 g/dl (13.5-18.0); MEAN CORPUSCULAR HEMOGLOBIN 32 pg (27.0-31.0)
[2019-11-29 08:12] LABS: CALCIUM 7.9 mg/dL (8.4-10.2); CREATININE, serum 0.7 (0.66-1.25); POTASSIUM 3.8 mmol/L (3.4-5.0)
[2019-11-29 11:57] VITALS: BP 106/60; PULSE 85; TEMP 98
[2019-11-29 16:31] VITALS: BP 118/58; PULSE 86; TEMP 98
--- NOTE | 2019-11-29 17:46 | NUR ---
Patient had a good and uneventful day today. he recieved multiple PRN morphine doses throughout the day for the pain in his thoracentesis site. He stated he was worried that the doctor "hit his kidney with the needle" but he procedure was done in radiology. other than that he has had no issues through out the day. Last IV antibiotic is late due to the magnesium slow drip administered throughout the morning. He has voided and had a BM multiple times throughout the day. no other needs were expressed at si time. Call light in reach.
--- NOTE | 2019-11-29 18:15 | NUR ---
Patient reported being nauseous at one point prior to my entry to the room. From what I could understand he may have dry heaved a little bit. He is eating dinner and states that it has subsided since then. I assured him to let me know if this occurs again. call light in reach.
[2019-11-29 19:13] VITALS: BP 112/69; PULSE 82; TEMP 98.7
--- NOTE | 2019-11-29 20:30 | NUR ---
Initial shift assessment done- states pain to right back where thoracentesis procedure was done- states about 01/30-requesting Morphine IV--will give as ordered. States would like a snack before bed tonight- no other requests, talking on phone to family-
[2019-11-29 23:31] VITALS: BP 107/63; PULSE 89; TEMP 97.8
[2019-11-30 03:26] VITALS: BP 100/63; PULSE 81; TEMP 98.1
--- NOTE | 2019-11-30 04:19 | NUR ---
Quiet night- VSS, has been sleeping most of shift- no requests for pain meds since beginning of shift
[2019-11-30 05:52] LABS: BASO % 0.4 % (0.0-2.0); EOS # 0.7 (0.0-0.7); EOS % 14.2 % (0-4.0); GRAN # 2.1 (1.4-6.5); GRAN % 45.1 % (42.2-75.2); LYMPH # 1.1 (1.2-3.4); LYMPH % 23.1 % (20.0-51.0); MEAN CELL VOLUME 95 fl (80.0-100.0); MEAN CORPUSCULAR HGB CONC 33 g/dl (33.0-37.0); MEAN PLATELET VOLUME 11.6 fl (7.4-10.4); MONO # 0.8 (0.1-0.6); PLATELET COUNT 95 K/mm3 (130-400); RED BLOOD COUNT 3.14 M/mm3 (4.20-5.60); REDCELL DISTRIBUTION WIDTH-CV 14.6 % (11.5-14.5)
[2019-11-30 05:54] LABS: HEMATOCRIT 29.8 % (42.0-52.0); HEMOGLOBIN 9.9 g/dl (13.5-18.0); MEAN CORPUSCULAR HEMOGLOBIN 32 pg (27.0-31.0)
[2019-11-30 06:08] LABS: ALBUMIN 1.8 gm/dL (3.5-5.0); BILIRUBIN,TOTAL 1.7 mg/dL (0.0-1.0); CALCIUM 7.8 mg/dL (8.4-10.2); CREATININE, serum 1.22 (0.66-1.25); MAGNESIUM 1.6 mg/dL (1.6-2.3); TOTAL PROTEIN 5.4 gm/dL (6.4-8.2)
[2019-11-30 07:24] VITALS: BP 96/54; PULSE 89; TEMP 98.2
[2019-11-30 11:58] VITALS: BP 99/62; PULSE 78; TEMP 98.2
[2019-11-30 12:17] LABS: INR 1.9 (0.8-3.0); PROTHROMBIN TIME 22.9 SECONDS (9.7-12.8)
[2019-11-30 15:50] VITALS: BP 106/75; PULSE 81; TEMP 98.6
--- NOTE | 2019-11-30 19:30 | NUR ---
Received report from [facility]. Seen patient awake, sitting in bed. He just finished eating his dinner. With INT on left AC. He's asking for pain meds but told him that he just got oxycodone earlier and he said he will just have another one by 2300H.
[2019-11-30 19:31] VITALS: BP 98/57; PULSE 82; TEMP 98.6
[2019-11-30 23:26] VITALS: BP 106/61; PULSE 73; TEMP 98.5
[2019-12-01 04:02] VITALS: BP 95/60; PULSE 76; TEMP 98
--- NOTE | 2019-12-01 06:22 | NUR ---
Patient had an uneventful night. This morning he states that his pain is not that much. This nurse was able to give one dose of Oxycodone last night and then he didn't asked for it anymore after that. Will endorse to dayshift nurse.
[2019-12-01 06:47] LABS: BASO % 0.6 % (0.0-2.0); EOS # 0.8 (0.0-0.7); GRAN # 2.2 (1.4-6.5); GRAN % 41.6 % (42.2-75.2); HEMATOCRIT 33.4 % (42.0-52.0); LYMPH # 1.5 (1.2-3.4); LYMPH % 27.8 % (20.0-51.0); MEAN CELL VOLUME 97 fl (80.0-100.0); MEAN CORPUSCULAR HEMOGLOBIN 32 pg (27.0-31.0); MEAN CORPUSCULAR HGB CONC 33 g/dl (33.0-37.0); MEAN PLATELET VOLUME 11.2 fl (7.4-10.4); MONO # 0.8 (0.1-0.6); MONO % 14.8 % (1.7-9.3); PLATELET COUNT 116 K/mm3 (130-400); RED BLOOD COUNT 3.43 M/mm3 (4.20-5.60); REDCELL DISTRIBUTION WIDTH-CV 14.6 % (11.5-14.5)
[2019-12-01 07:02] LABS: ALBUMIN 2.1 gm/dL (3.5-5.0); CALCIUM 8.5 mg/dL (8.4-10.2); CREATININE, serum 0.87 (0.66-1.25); POTASSIUM 4.1 mmol/L (3.4-5.0); TOTAL PROTEIN 5.8 gm/dL (6.4-8.2)
[2019-12-01 07:31] VITALS: BP 99/59; PULSE 82; TEMP 97.9
--- NOTE | 2019-12-01 08:00 | NUR ---
Assessment complete. Pt sitting up in bed, A&O x 4. Breath sounds clear but diminished in bases bilat. Pt denies pain at this time. Saline lock IV to left AC without s/s of complications. No further needs reported. Call light in reach.
[2019-12-01] MEDS ORDERED: OMNICEF 300MG300 MG PO (10:31)
[2019-12-01] MEDS ORDERED: ALDACTONE 100M100 MG PO (10:32)
[2019-12-01] MEDS ORDERED: ROXICODONE 55 MG/TAB PO (10:32)
[2019-12-01] MEDS ORDERED: LASIX 40MG TABL40 MG PO (10:33)
[2019-12-01] MEDS ORDERED: MAG-OX 400400 MG/TAB PO (10:34)
[2019-12-01] MEDS ORDERED: LEVEMIR FLEX100 U/ML SQ (10:35)
[2019-12-01] MEDS ORDERED: TRUE COMFORT P1 EAC1 MC (10:36)
[2019-12-01 11:11] VITALS: BP 99/56; PULSE 66; TEMP 98.6
--- NOTE | 2019-12-01 12:00 | NUR ---
Reviewed process of drawing up and self administering Insulin with pt. Pt refuses return demonstration at this time, but verbalizes understanding. Pt c/o dizziness, asking "what do I do about this?" Confirms feeling unsteady when standing. PA notified.
--- NOTE | 2019-12-01 13:01 | NUR ---
Shoe Singer attended clinical rounds with the team and patient to discharge home today. Patient to follow up with PCP and Dr. Gtz, Inker to determine if drain is needed. No additional needs at this time.
[2019-12-01 13:20] VITALS: BP 104/60; BP 118/75; BP 91/53; PULSE 79; PULSE 80; PULSE 82
--- NOTE | 2019-12-01 16:01 | NUR ---
Pt denies dizziness now and states, "I feel ready to go home." PA notified. Discharge instructions reviewed with pt. Pt verbalizes understanding, denies questions or concerns. IV removed from left AC with tip intact. Pt discharged home, escorted out of facility via WC accompanied by INTERNET SALES MANAGER. Pt's sister providing ride.
== END 2019-12-01 16:30 | disposition home or self-care (01) | DRG 435 ==
LOC: COL.ER 16:51 → MEDICAL 18:38
PROVIDERS: Emergency Medicine; Nurse Practitioner Family; Physician Assistant; ADMIT Student in an Organized Health Care Education/Training Program
PROC: 0W993ZZ Drainage of Right Pleural Cavity, Percutaneous Approach (ICD-10-PCS; principal; 2019-11-27)
DX: C22.8 Malignant neoplasm of liver, primary, unspecified as to type (principal); J18.9 Pneumonia, unspecified organism; J91.0 Malignant pleural effusion; R18.8 Other ascites; K74.60 Unspecified cirrhosis of liver; E11.9 Type 2 diabetes mellitus without complications; E11.65 Type 2 diabetes mellitus with hyperglycemia; D69.6 Thrombocytopenia, unspecified; D50.0 Iron deficiency anemia secondary to blood loss (chronic); R74.0 Nonspecific elevation of levels of transaminase and lactic acid dehydrogenase [LDH]; E80.6 Other disorders of bilirubin metabolism; K21.9 Gastro-esophageal reflux disease without esophagitis; E87.6 Hypokalemia; E83.42 Hypomagnesemia; R50.9 Fever, unspecified; Z79.84 Long term (current) use of oral hypoglycemic drugs
CPT/HCPCS: 99222-AI; 99232-AI; 99233-AI; 99239; A9284; J0456; J0696; J1815; J2270; J3475; J7040; J7050

== ENCOUNTER → 2019-12-18 | Outpatient (CLI) | payer OTHER ==
[~2019-12-18] MED LIST changes: +ALDACTONE 100M100 MG PO; +AMBIEN 5MG TABLE5 MG PO; +FLOMAX 0.40.4 MG/CAP PO; +KLOR-CON SPRIN10 MEQ PO; +LASIX 40MG TABL40 MG PO; +LEVEMIR FLEX100 U/ML SQ; +MAG-OX 400400 MG/TAB PO; +ROXICODONE 55 MG/TAB PO; +TRUE COMFORT P1 EAC1 MC; +ZOFRAN ODT4 MG PO
[2019-12-18 19:05] LABS: CALCIUM 9.3 mg/dL (8.4-10.2); CREATININE, serum 0.77 (0.66-1.25); POTASSIUM 4.4 mmol/L (3.4-5.0)
== END ==
LOC: ZCOL.LAB 15:51
PROVIDERS: Internal Medicine
DX: K70.30 Alcoholic cirrhosis of liver without ascites (principal)

== ENCOUNTER → 2019-12-18 | Outpatient (CLI) | payer OTHER | LOC: ZCOL.LAB 18:01 | DX: K70.30 Alcoholic cirrhosis of liver without ascites (principal) ==

== ENCOUNTER 2020-02-09 15:54 | Emergency (ER) | payer OTHER ==
[2008-11-19 13:06] VITALS: BP 125/71
[~2020-02-09] VITALS: Ht 165.1 cm; Wt 73.2 kg
[2020-02-09 16:41] VITALS: TEMP 98.6
[2020-02-09 17:27] LABS: BASO % 0.5 % (0.0-2.0); EOS # 0.5 (0.0-0.7); EOS % 6.5 % (0-4.0); GRAN # 5.1 (1.4-6.5); GRAN % 65.7 % (42.2-75.2); HEMOGLOBIN 10.7 g/dl (13.5-18.0); LYMPH # 1.2 (1.2-3.4); LYMPH % 15.4 % (20.0-51.0); MEAN CELL VOLUME 96 fl (80.0-100.0); MEAN CORPUSCULAR HEMOGLOBIN 32 pg (27.0-31.0); MEAN CORPUSCULAR HGB CONC 34 g/dl (33.0-37.0); MEAN PLATELET VOLUME 11.6 fl (7.4-10.4); MONO # 0.9 (0.1-0.6); MONO % 11.4 % (1.7-9.3); PLATELET COUNT 70 K/mm3 (130-400); RED BLOOD COUNT 3.31 M/mm3 (4.20-5.60); REDCELL DISTRIBUTION WIDTH-CV 17.2 % (11.5-14.5)
[2020-02-09 17:34] LABS: HEMATOCRIT 31.7 % (42.0-52.0)
[2020-02-09 17:35] LABS: INR 2.1 (0.8-3.0); PROTHROMBIN TIME 24.2 SECONDS (9.7-12.8)
[2020-02-09 17:36] LABS: ALANINE AMINOTRANSFERASE 51 U/L (4-49); ALBUMIN 2.2 gm/dL (3.5-5.0); ALKALINE PHOSPHATASE 307 U/L (50-136); ANION GAP 5 mmol/L (7-16); AST,SGOT 88 U/L (15-37); BILIRUBIN,TOTAL 2.3 mg/dL (0.0-1.0); BLOOD UREA NITROGEN 8 mg/dL (9-20); CALCIUM 8.7 mg/dL (8.4-10.2); CARBON DIOXIDE 25 mmol/L (22-30); CHLORIDE 101 mmol/L (98-107); GLUCOSE 164 mg/dL (74-106); LIPASE 103 U/L (23-300); POTASSIUM 3.9 mmol/L (3.4-5.0); SODIUM 131 mmol/L (137-145); TOTAL PROTEIN 6.2 gm/dL (6.4-8.2)
[2020-02-09 17:37] LABS: PARTIAL THROMBOPLASTIN TIME 48.7 SECONDS (26.0-37.0)
[2020-02-09 17:49] LABS: TROPONIN-I < 0.012 ng/mL (0.000-0.035)
[2020-02-09] MEDS ORDERED: ULTRAM 50MG TAB50 MG PO (22:06)
[2020-02-09] MEDS ORDERED: LIDODERM 5% PATC1 EA TP (22:09)
[2020-02-09 22:13] VITALS: BP 115/73; PULSE 88
== END 2020-02-09 22:20 | disposition home or self-care (01) ==
LOC: COL.ER 15:54
PROVIDERS: Emergency Medicine
DX: J90 Pleural effusion, not elsewhere classified (principal); R07.89 Other chest pain; E11.9 Type 2 diabetes mellitus without complications; K21.9 Gastro-esophageal reflux disease without esophagitis; Z79.4 Long term (current) use of insulin
CPT/HCPCS: J2270; J2405; Q9967

== ENCOUNTER 2020-02-16 12:30 | Outpatient (CLI) | payer OTHER ==
[2008-11-19 13:06] VITALS: BP 125/71
[~2020-02-16] VITALS: Ht 165.1 cm; Wt 72.0 kg
[~2020-02-16 12:30] MED LIST changes: +LIDODERM 5% PATC1 EA TP
[2020-02-16 13:10] VITALS: BP 127/77; PULSE 98
[2020-02-16 14:24] LABS: PLEURAL FLUID APPEARANCE CLEAR; PLEURAL FLUID COLOR YELLOW
[2020-02-16 14:29] LABS: PLEURAL FLUID RBC 1000 /mm3 (0-0); PLEURAL FLUID WBC 166 /mm3
[2020-02-16 15:35] VITALS: BP 120/68; PULSE 88; TEMP 98
== END 2020-02-16 15:40 | disposition home or self-care (01) ==
LOC: COL.RAD 12:30
PROVIDERS: Internal Medicine Gastroenterology
DX: K76.9 Liver disease, unspecified (principal); J91.8 Pleural effusion in other conditions classified elsewhere
CPT/HCPCS: P9047

== ENCOUNTER → 2020-02-28 | Outpatient (CLI) | payer OTHER ==
[2008-11-19 13:06] VITALS: BP 125/71
[~2020-02-28] VITALS: Ht 165.1 cm; Wt 69.7 kg
[~2020-02-28] MED LIST changes: +D3-5050000 IU PO; +LEVEMIR100 U/ML SQ
[2020-02-28 06:51] VITALS: BP 131/66; PULSE 91
[2020-02-28 08:39] LABS: PLEURAL FLUID APPEARANCE CLEAR; PLEURAL FLUID COLOR YELLOW
[2020-02-28 08:44] LABS: PLEURAL FLUID RBC 0 /mm3 (0-0); PLEURAL FLUID WBC 217 /mm3
[2020-02-28 09:51] VITALS: BP 116/64; PULSE 94; TEMP 98.6
== END ==
LOC: COL.RAD 06:33
PROVIDERS: Internal Medicine Gastroenterology
DX: J91.8 Pleural effusion in other conditions classified elsewhere (principal); K76.9 Liver disease, unspecified
CPT/HCPCS: P9047

== ENCOUNTER 2020-04-10 09:43 | Outpatient (CLI) | payer OTHER ==
[2008-11-19 13:06] VITALS: BP 125/71
--- NOTE | 2020-04-09 08:14 | NUR ---
LMOM WITH CALL BACK NUMBER
[~2020-04-10] VITALS: Ht 165.1 cm; Wt 69.3 kg
[2020-04-10 10:17] VITALS: BP 123/72; PULSE 64
[2020-04-10 11:56] LABS: PLEURAL FLUID RBC 1000 /mm3 (0-0); PLEURAL FLUID WBC 591 /mm3
[2020-04-10 12:00] LABS: PLEURAL FLUID APPEARANCE CLEAR; PLEURAL FLUID COLOR YELLOW
[2020-04-10 12:24] VITALS: BP 102/63; PULSE 64
--- NOTE | 2020-04-10 12:44 | NUR ---
INT discontinued intact. Transferred to private car by wc
== END 2020-04-10 12:45 | disposition home or self-care (01) ==
LOC: EUO 09:43 → COL.RAD 09:43
PROVIDERS: Internal Medicine Gastroenterology
DX: J90 Pleural effusion, not elsewhere classified (principal)
CPT/HCPCS: P9047

== ENCOUNTER 2020-04-14 03:52 | Observation (INO) | payer OTHER ==
[~2020-04-14] VITALS: Ht 165.1 cm; Wt 67.8 kg
[2020-04-14 04:30] LABS: BASO % 0.5 % (0.0-2.0); EOS # 0.5 (0.0-0.7); EOS % 5.5 % (0-4.0); GRAN # 6.1 (1.4-6.5); GRAN % 68.8 % (42.2-75.2); HEMOGLOBIN 10.3 g/dl (13.5-18.0); LYMPH # 1.4 (1.2-3.4); LYMPH % 15.7 % (20.0-51.0); MEAN CELL VOLUME 90 fl (80.0-100.0); MEAN CORPUSCULAR HEMOGLOBIN 31 pg (27.0-31.0); MEAN CORPUSCULAR HGB CONC 34 g/dl (33.0-37.0); MEAN PLATELET VOLUME 11.1 fl (7.4-10.4); MONO # 0.8 (0.1-0.6); PLATELET COUNT 123 K/mm3 (130-400); RED BLOOD COUNT 3.32 M/mm3 (4.20-5.60); REDCELL DISTRIBUTION WIDTH-CV 18.2 % (11.5-14.5)
[2020-04-14 04:38] LABS: INR 1.9 (0.8-3.0); PROTHROMBIN TIME 21.2 SECONDS (9.7-12.8)
[2020-04-14 04:39] LABS: ALANINE AMINOTRANSFERASE 42 U/L (4-49); ALBUMIN 2.2 gm/dL (3.5-5.0); ALKALINE PHOSPHATASE 326 U/L (50-136); ANION GAP 4 mmol/L (7-16); AST,SGOT 105 U/L (15-37); BILIRUBIN,TOTAL 3.9 mg/dL (0.0-1.0); BLOOD UREA NITROGEN 7 mg/dL (9-20); CALCIUM 8.2 mg/dL (8.4-10.2); CARBON DIOXIDE 20 mmol/L (22-30); CHLORIDE 110 mmol/L (98-107); CREATININE, serum 0.61 (0.66-1.25); GLUCOSE 183 mg/dL (74-106); LIPASE 262 U/L (23-300); POTASSIUM 3.2 mmol/L (3.4-5.0); SODIUM 134 mmol/L (137-145); TOTAL PROTEIN 6.4 gm/dL (6.4-8.2)
[2020-04-14 04:51] LABS: TROPONIN-I < 0.012 ng/mL (0.000-0.035)
[2020-04-14] MEDS ORDERED: SYNTHROID0.1 MG/TAB PO (05:35)
[2020-04-14] MEDS ORDERED: LASIX 20MG TABL20 MG PO (05:36)
[2020-04-14] MEDS ORDERED: PRILOSEC 20MG20 MG PO (05:44)
[2020-04-14] MEDS ORDERED: ALDACTONE50 MG PO (05:46)
[2020-04-14] MEDS ORDERED: VITAMIND3 5000 PO (05:46)
[2020-04-14] MEDS ORDERED: ZOFRAN 4MG T4 MG/TAB PO (05:54)
[2020-04-14] MEDS ORDERED: VITAMIN B COMPL1 SGL PO (05:55)
[2020-04-14] MEDS ORDERED: VITAMIN A10k PO (05:55)
[2020-04-14] MEDS ORDERED: MASON NATURAL2000 IU PO (05:56)
[2020-04-14 06:14] VITALS: BP 115/63; PULSE 83; TEMP 98.6
--- NOTE | 2020-04-14 06:45 | NUR ---
PT ARRIVED TO THE UNIT AT ABOUT 0515 AND ARDEN CAME UP RIGHT AWAY AND DID HER ASSESSMENT. PT A/O X4, SPEAKS MOSTLY ESTONIAN, NEEDS WEB CONSULTANT. PT AMBULATES WITH NO DIFFICULTIES AND GAIT IS STEADY. NO SKIN ISSUES. PT STATES THAT BACK OF CALVES ARE PAINFUL, SINCE CHEMO ABOUT 20 DAYS AGO. CALL LIGHT WITHIN REACH.
[2020-04-14 07:20] VITALS: BP 128/72; PULSE 85; TEMP 97.4
[2020-04-14 12:19] VITALS: BP 110/64; PULSE 72; TEMP 97.8
--- NOTE | 2020-04-14 14:42 | NUR ---
SW met with patient to discuss discharge planning. Patient asked SW to contact his . SW did provide patient the option of speaking with head of it services, however patient declined. SW was provided with Blanca's phone number [phone] who serves as patients care support and EMR. They reside in [facility]. indicated that pt did not have a DPOA, he did not utilize any DME and that he he is independent with ADL's. indicated that patients PCP is Dr. Ortiz, and pt does not have any upcoming appoitments. PAtient received medications from [facility] in [facility] with no concerns. SW will continue to follow up.
[2020-04-14 16:09] VITALS: BP 117/71; PULSE 74; TEMP 97.8
--- NOTE | 2020-04-14 17:53 | NUR ---
Pt resting in the room, has C/O pain lateral right side, no othe complaints, initial assessments completed. Pt has limited panamanian ability, communication was via or scrub tech yudelka to perform assessments. Pt eating / drinking well. VS have remained stable.
[2020-04-14 19:38] VITALS: BP 131/80; PULSE 85; TEMP 98.1
--- NOTE | 2020-04-14 21:40 | NUR ---
Pt assessment completed and documented. PT resting in bed with eyes closed when entering room. Pt alert and oriented x4. Complaints of 6/10 pain located to his "liver". Scheduled ultram given at this time per orders. INT to left ac CDI. Pt denies any needs. Call light within reach. Will continue to monitor
[2020-04-14 23:22] VITALS: BP 110/68; PULSE 64; TEMP 98.5
[2020-04-15 03:55] VITALS: BP 105/52; PULSE 82; TEMP 98.7
--- NOTE | 2020-04-15 05:05 | NUR ---
Pt had uneventful shift. Pt rested well overnight. No complaints at this time. Call light within reach. Will continue to monitor
--- NOTE | 2020-04-15 05:45 | NUR ---
SURESH Grullon notified of bedside glucose of 38. New orders received and initiated.
[2020-04-15 06:54] LABS: BASO % 0.5 % (0.0-2.0); EOS # 0.3 (0.0-0.7); EOS % 5.3 % (0-4.0); GRAN # 4.1 (1.4-6.5); GRAN % 73.7 % (42.2-75.2); LYMPH # 0.5 (1.2-3.4); LYMPH % 9.3 % (20.0-51.0); MEAN CELL VOLUME 93 fl (80.0-100.0); MEAN CORPUSCULAR HGB CONC 34 g/dl (33.0-37.0); MEAN PLATELET VOLUME 10.6 fl (7.4-10.4); MONO # 0.6 (0.1-0.6); MONO % 10.5 % (1.7-9.3); PLATELET COUNT 91 K/mm3 (130-400); RED BLOOD COUNT 2.98 M/mm3 (4.20-5.60); REDCELL DISTRIBUTION WIDTH-CV 18.7 % (11.5-14.5)
[2020-04-15 06:57] LABS: HEMATOCRIT 27.8 % (42.0-52.0); HEMOGLOBIN 9.3 g/dl (13.5-18.0); MEAN CORPUSCULAR HEMOGLOBIN 31 pg (27.0-31.0)
[2020-04-15 07:07] LABS: ALBUMIN 1.9 gm/dL (3.5-5.0); BILIRUBIN,TOTAL 4.2 mg/dL (0.0-1.0); CALCIUM 7.6 mg/dL (8.4-10.2); CREATININE, serum 0.59 (0.66-1.25); MAGNESIUM 1.6 mg/dL (1.6-2.3); POTASSIUM 3.3 mmol/L (3.4-5.0); TOTAL PROTEIN 5.6 gm/dL (6.4-8.2)
[2020-04-15 07:08] VITALS: BP 113/70; PULSE 63; TEMP 97.5
--- NOTE | 2020-04-15 08:48 | NUR ---
PT IN BED, REPORTS PAIN 7/10 IN RIBS, PT DOES NOT APPEAR SOB, PT PLEASANT, AOX4, TOOK PILLS WITH SIP OF WATER, NPO MAINTAINED, POTENTIAL PLEUREX DRAIN PLACEMENT TODAY. VITALS REVIEWED, MEDS GIVEN, ASSESSMENT PERFORMED. NO OTHER NEEDS AT THIS TIME.
--- NOTE | 2020-04-15 10:27 | NUR ---
reassessed pain, pt stated it is the same as it has been but he did not want pain medication. informed pt of getting a hold of ku to approve pleurex drain. informed ultrasound of hold on thoracentesis until hear from ku. no other needs at this time.
[2020-04-15 11:44] VITALS: BP 114/68; PULSE 72; TEMP 97.6
--- NOTE | 2020-04-15 12:35 | NUR ---
First visit from the project development leader. No needs right now.
[2020-04-15 13:01] LABS: PROTHROMBIN TIME 22.9 SECONDS (9.7-12.8)
[2020-04-15 14:45] VITALS: BP 113/63; PULSE 72; TEMP 99
--- NOTE | 2020-04-15 14:52 | NUR ---
PT BEING TAKEN DOWN FOR THORACENTESIS.
--- NOTE | 2020-04-15 16:36 | NUR ---
PT DECLINED INTEGRATED LOGISTICS SUPPORT MANAGER SERVICE. DISCHARGE EDUCATION PROVIDED. INFORMATION PROVIDED ON APPOINTMENTS. INFORMED PT NO CHANGES TO MEDS WERE MADE. PT VERBALIZED UNDERSTANDING AND REPEATED THE INFORMATION BACK TO ME. PT IV REMOVED, TELE REMOVED, PT GETTING READY TO LEAVE.
[2020-04-15 16:39] VITALS: BP 106/58; PULSE 86
--- NOTE | 2020-04-15 16:56 | NUR ---
PT ESCORTED OUT VIA WHEELCHAIR, IV REMOVED, DISHCARGE PAPERWORK AND BELONGINGS TAKEN WITH PT.
== END 2020-04-15 16:56 | disposition home or self-care (01) ==
LOC: COL.ER 03:52 → MEDICAL 04:32
PROVIDERS: Emergency Medicine; Physician Assistant; ADMIT Internal Medicine
DX: J90 Pleural effusion, not elsewhere classified (principal); K70.30 Alcoholic cirrhosis of liver without ascites; C22.8 Malignant neoplasm of liver, primary, unspecified as to type; D64.9 Anemia, unspecified; D69.6 Thrombocytopenia, unspecified; E11.649 Type 2 diabetes mellitus with hypoglycemia without coma; E87.6 Hypokalemia; K21.9 Gastro-esophageal reflux disease without esophagitis; R60.0 Localized edema; Z79.4 Long term (current) use of insulin; Z88.0 Allergy status to penicillin; Z53.8 Procedure and treatment not carried out for other reasons
CPT/HCPCS: G0378; J1815; J2270

== ENCOUNTER 2020-04-22 06:59 | Day surgery (SDC) | payer OTHER ==
[2008-11-19 13:06] VITALS: BP 125/71
[~2020-04-22] VITALS: Ht 165.1 cm; Wt 68.7 kg
[~2020-04-22 06:59] MED LIST changes: +SYNTHROID0.1 MG/TAB PO; +VITAMIN B COMPL1 SGL PO; +VITAMIND3 5000 PO
[2020-04-22 07:34] VITALS: BP 114/54; PULSE 84; TEMP 99.1
[2020-04-22 07:43] LABS: MEAN CELL VOLUME 97 fl (80.0-100.0); MEAN CORPUSCULAR HEMOGLOBIN 33 pg (27.0-31.0); MEAN CORPUSCULAR HGB CONC 33 g/dl (33.0-37.0); MEAN PLATELET VOLUME 10.4 fl (7.4-10.4); PLATELET COUNT 109 K/mm3 (130-400); RED BLOOD COUNT 3.38 M/mm3 (4.20-5.60); REDCELL DISTRIBUTION WIDTH-CV 20.6 % (11.5-14.5)
[2020-04-22 07:45] LABS: HEMATOCRIT 32.9 % (42.0-52.0)
[2020-04-22 07:55] LABS: INR 1.6 (0.8-3.0); PROTHROMBIN TIME 17.8 SECONDS (9.7-12.8)
[2020-04-22] MEDS ORDERED: K-DUR 10 MEQ T10 MEQ PO (07:55)
[2020-04-22 08:00] LABS: BAND 3 % (0-10); EOSINOPHIL 8 % (0-4); LYMPHOCYTE 26 % (20.0-51.0); NEUTROPHILS 57 % (42.0-75.2); PLATELET ESTIMATE DECREASED (NORMAL)
--- NOTE | 2020-04-22 08:00 | NUR ---
JINNY ELLISON HERE TO HELP INTERPRET DUE TO LANGUAGE BARRIER. RIVAS MOSQUEDA RN HERE TO TALK WITH PATIENT
[2020-04-22 08:08] LABS: PARTIAL THROMBOPLASTIN TIME 40.2 SECONDS (26.0-37.0)
[2020-04-22 09:10] VITALS: BP 119/68; PULSE 82; TEMP 98.7
--- NOTE | 2020-04-22 09:10 | NUR ---
TO RM 7 PER CART FROM ENDOSCOPY. AWAKE AND ORIENTED X 3, TALKING TO NEICE. DRESSING CLEAN AND DRY INTACT. DENIES PAIN OR DISCOMFORT AT THIS TIME. DENIES NAUSEA AT THIS TIME.
[2020-04-22 09:25] VITALS: BP 108/60; PULSE 88
[2020-04-22] MEDS ORDERED: NORCO 325 MG-51 TAB PO (09:28)
[2020-04-22] MEDS ORDERED: CEPHALEXIN500 M1 PO (09:29)
[2020-04-22 09:40] VITALS: BP 102/60; PULSE 82
--- NOTE | 2020-04-22 09:40 | NUR ---
RADIOLOGY CALLED. DR PRINCE STATED NO PNEUMOTHORAX. DR ZUNIGA CALLED AND OK'D FOR DISCHARGE AND FOLLOW UP NEXT WEEK. FOLLOW UP KRYSTYNA SCHEDULED FOR THE Apr AT 1200 PATIENT RECEIVED SABINA BOWEN.
[2020-04-22 09:55] VITALS: BP 107/61; PULSE 86
--- NOTE | 2020-04-22 09:55 | NUR ---
C/O BEING COLD AND RECEIVED WARM BLANKETS. C/O INCREASED PAIN -03/01 RECEIVED NORCO 5MG AND KEFLEX 500MG ORDERED.
[2020-04-22 10:15] VITALS: BP 110/69; PULSE 86
--- NOTE | 2020-04-22 10:15 | NUR ---
PAIN BETTER WHEN RESTING. C/O INCREASED DISCOMFORT WHEN MOVING.
--- NOTE | 2020-04-22 10:26 | NUR ---
PATIENT AND HIS NEICE RECEIVED DISCHARGE INSTRUCTIONS AND VERBALIZED UNDERSTANDING.
--- NOTE | 2020-04-22 10:30 | NUR ---
JINNY ASSISTED PATIENT DRESSED
--- NOTE | 2020-04-22 10:43 | NUR ---
DISCHARGED PER WC BY NURSING STAFF TO PRIVATE CAR IN CARE OF [facility].
== END 2020-04-22 10:49 | disposition home or self-care (01) ==
LOC: SDCO 06:59
PROVIDERS: Internal Medicine Pulmonary Disease
DX: J91.8 Pleural effusion in other conditions classified elsewhere (principal); K70.30 Alcoholic cirrhosis of liver without ascites; C22.8 Malignant neoplasm of liver, primary, unspecified as to type; K72.90 Hepatic failure, unspecified without coma; D63.0 Anemia in neoplastic disease; E11.9 Type 2 diabetes mellitus without complications; D69.6 Thrombocytopenia, unspecified; K21.9 Gastro-esophageal reflux disease without esophagitis; E87.6 Hypokalemia; R60.0 Localized edema; Z20.828 Contact with and (suspected) exposure to other viral communicable diseases; Z79.899 Other long term (current) drug therapy; Z96.89 Presence of other specified functional implants; Z79.4 Long term (current) use of insulin; Z87.891 Personal history of nicotine dependence; Z88.0 Allergy status to penicillin
CPT/HCPCS: C1729; J0690; J2704; J3010

== ENCOUNTER 2020-05-07 07:01 | Day surgery (SDC) | payer OTHER ==
[2008-11-19 13:06] VITALS: BP 125/71
[~2020-05-07] VITALS: Ht 165.1 cm; Wt 71.4 kg
[~2020-05-07 07:01] MED LIST changes: +CEPHALEXIN500 M1 PO; +K-DUR 10 MEQ T10 MEQ PO; +NORCO 325 MG-51 TAB PO
[2020-05-07] MEDS ORDERED: CARAFATE 1GM1 G PO (08:43)
[2020-05-07 08:44] VITALS: BP 104/54; PULSE 75; TEMP 98.6
[2020-05-07 10:15] VITALS: BP 96/52; PULSE 74; TEMP 97.7
[2020-05-07 17:57] VITALS: BP 102/55; PULSE 74
[2020-05-07] MEDS ORDERED: ALDACTONE 100M100 MG PO (19:19)
[2020-05-07] MEDS ORDERED: ULTRAM 50MG TAB50 MG PO (19:20)
[2020-05-07] MEDS ORDERED: MAG-OX 400400 MG/TAB PO (19:22)
[2020-05-07] MEDS ORDERED: AMBIEN 5MG TABLE5 MG PO (19:23)
[2020-05-07] MEDS ORDERED: VITAMIND3 5000 PO (19:29)
[2020-05-07] MEDS ORDERED: ROXICODONE 55 MG/TAB PO (19:34)
[2020-05-09] MEDS ORDERED: PRIL40 (09:28)
[2020-05-10] MEDS ORDERED: LEVAQUIN 5500 MG/TA1 PO (09:06)
== END 2020-05-07 10:38 | disposition home or self-care (01) ==
LOC: SDCO
DX: J90 Pleural effusion, not elsewhere classified (principal); K70.30 Alcoholic cirrhosis of liver without ascites; I10 Essential (primary) hypertension; E11.9 Type 2 diabetes mellitus without complications; D68.9 Coagulation defect, unspecified; Z20.828 Contact with and (suspected) exposure to other viral communicable diseases; Z88.0 Allergy status to penicillin
CPT/HCPCS: J2405

== ENCOUNTER → 2020-11-18 | Outpatient (CLI) | payer SELFPAY ==
[2008-11-19 13:06] VITALS: BP 125/71
[~2020-11-18] VITALS: Ht 165.1 cm; Wt 67.8 kg
[~2020-11-18] MED LIST changes: +ATIVAN 0.50.5 MG/TAB PO; +BELSOMRA5 MG PO; +COMPAZINE 110 MG/TAB PO; +EUTHYROX137 MCG PO; +INSHUMULIN7030KWIK SQ; +LEVAQUIN 5500 MG/TA1 PO; +MEPHYTON 5MG5 MG/TAB PO; +ONE-A-DAY ESSE1 EACH PO; +PRIL40; +SYNTHROID0.125 MG/T PO
[2020-11-18 13:03] VITALS: BP 112/63; PULSE 92
[2020-11-18 14:00] VITALS: BP 115/63; PULSE 91
== END ==
LOC: COL.RAD 12:00
DX: J90 Pleural effusion, not elsewhere classified (principal)
CPT/HCPCS: 19804

== ENCOUNTER → 2020-12-26 | Outpatient (CLI) | payer SELFPAY | LOC: COL.RAD 10:37 | DX: R16.1 Splenomegaly, not elsewhere classified (principal); R10.12 Left upper quadrant pain ==

== ENCOUNTER → 2021-01-06 | Outpatient (CLI) | payer SELFPAY ==
[2008-11-19 13:06] VITALS: BP 125/71
[~2021-01-06] VITALS: Ht 165.1 cm; Wt 65.1 kg
[2021-01-06 10:18] VITALS: BP 115/68; PULSE 88
--- NOTE | 2021-01-06 11:30 | NUR ---
pt returns from us no fluid found in abdomen and the lungs. Only a small amount on the right lung not enough to remove per US and Dr Alston. Pt out to meet with nephew to go home.
== END ==
LOC: COL.RAD 09:36
DX: C22.0 Liver cell carcinoma (principal)

== ENCOUNTER 2021-03-07 22:04 | Inpatient (IN) | payer SELFPAY ==
[~2021-03-07] VITALS: Ht 170.2 cm; Wt 68.2 kg
[~2021-03-07 22:04] MED LIST changes: -ATIVAN 0.50.5 MG/TAB PO; -BELSOMRA5 MG PO; -COMPAZINE 110 MG/TAB PO; -EUTHYROX137 MCG PO; -MEPHYTON 5MG5 MG/TAB PO; -ONE-A-DAY ESSE1 EACH PO; -SYNTHROID0.125 MG/T PO
[2021-03-07 22:45] LABS: BASO # 0.1 (0.0-0.2); BASO % 0.7 % (0.0-2.0); EOS # 0.4 (0.0-0.7); EOS % 5.2 % (0-4.0); GRAN # 4.1 (1.4-6.5); HEMOGLOBIN 11.6 g/dl (13.5-18.0); LYMPH # 1.9 (1.2-3.4); LYMPH % 26.2 % (20.0-51.0); MEAN CELL VOLUME 93 fl (80.0-100.0); MEAN CORPUSCULAR HEMOGLOBIN 32 pg (27.0-31.0); MEAN CORPUSCULAR HGB CONC 34 g/dl (33.0-37.0); MEAN PLATELET VOLUME 10.8 fl (7.4-10.4); MONO # 0.8 (0.1-0.6); MONO % 10.6 % (1.7-9.3); PLATELET COUNT 123 K/mm3 (130-400); RED BLOOD COUNT 3.63 M/mm3 (4.20-5.60); REDCELL DISTRIBUTION WIDTH-CV 17.1 % (11.5-14.5)
[2021-03-07 22:48] LABS: HEMATOCRIT 33.7 % (42.0-52.0)
[2021-03-07 22:52] LABS: PROTHROMBIN TIME 22.6 SECONDS (9.7-12.8)
[2021-03-07 22:53] LABS: ALANINE AMINOTRANSFERASE 40 U/L (4-49); ALBUMIN 2.5 gm/dL (3.5-5.0); ALKALINE PHOSPHATASE 315 U/L (50-136); ANION GAP 12 mmol/L (7-16); AST,SGOT 97 U/L (15-37); BILIRUBIN,TOTAL 4.1 mg/dL (0.0-1.0); BLOOD UREA NITROGEN 11 mg/dL (9-20); CALCIUM 9.4 mg/dL (8.4-10.2); CARBON DIOXIDE 18 mmol/L (22-30); CHLORIDE 107 mmol/L (98-107); GLUCOSE 206 mg/dL (74-106); SODIUM 136 mmol/L (137-145); TOTAL PROTEIN 7.1 gm/dL (6.4-8.2)
[2021-03-07 22:56] LABS: POTASSIUM 2.9 mmol/L (3.4-5.0)
[2021-03-07 23:10] LABS: TROPONIN-I < 0.012 ng/mL (0.000-0.035)
[2021-03-07 23:25] LABS: CREATINE KINASE 69 U/L (55-170); MAGNESIUM 1.7 mg/dL (1.6-2.3)
[2021-03-07 23:26] LABS: ALCOHOL(ethanol),MEDICAL < 10 mg/dL
[2021-03-08] VITALS (7 sets, daily range): BP systolic 84–139; BP diastolic 44–79; PULSE 60–98; TEMP 97.5–98.7
--- NOTE | 2021-03-08 00:50 | NUR ---
To room 355 via stretcher from ED. Alert but only oriented to self. No family at bedside-limited assessment completed due to this. Is also maltese speaking only. Admission assessment complete. VS stable. No s/s of pain or discomfort noted. INT to right wrist flushes without difficulty. High fall risk signage placed-yellow gown/socks-bed alarm on. Will monitor.
[2021-03-08] MEDS ORDERED: ATIVAN 0.50.5 MG/TAB PO (01:31)
[2021-03-08] MEDS ORDERED: ENULOSE10 GM/151 PO (01:32)
[2021-03-08] MEDS ORDERED: KLOR-CON SPRIN10 MEQ PO (01:32)
[2021-03-08] MEDS ORDERED: GLUCOPHAGE XR500 M1 PO (01:33)
[2021-03-08] MEDS ORDERED: MAG-OX 400400 MG/TAB PO (01:33)
[2021-03-08] MEDS ORDERED: FLOMAX 0.40.4 MG/CAP PO (01:34)
[2021-03-08] MEDS ORDERED: PRILOSEC 20MG20 MG PO (01:34)
[2021-03-08] MEDS ORDERED: SYNTHROID0.125 MG/T PO (01:34)
[2021-03-08 02:01] LABS: COLLECTION METHOD CLEAN CATCH
--- NOTE | 2021-03-08 02:11 | NUR ---
Aleksandr, patients contact called at this time to request medications be brought to hospital. Aleksandr states the family should be on their way with his medications.
[2021-03-08 02:15] LABS: MUCOUS Present /lpf; PH 6 (5-8); SQUAMOUS EPITHELIAL None Seen /hpf; URINE APPEARANCE Clear; URINE BACTERIA None Seen /hpf; URINE BILIRUBIN Negative (NEGATIVE); URINE BLOOD 1+ (NEGATIVE); URINE COLOR Yellow; URINE GLUCOSE Negative (NEGATIVE); URINE KETONE Negative (NEGATIVE); URINE LEUKOCYTE ESTERASE Negative (NEGATIVE); URINE NITRATE Negative (NEGATIVE); URINE PROTEIN(semi-quant) Negative (NEGATIVE); URINE UROBILINOGEN Negative (NEGATIVE)
[2021-03-08] MEDS ORDERED: LEVEMIR FLEX100 U/ML SQ (03:32)
[2021-03-08] MEDS ORDERED: ZOFRAN 4MG T4 MG/TAB PO (03:33)
[2021-03-08] MEDS ORDERED: COMPAZINE 110 MG/TAB PO (03:34)
[2021-03-08] MEDS ORDERED: BELSOMRA5 MG PO (03:35)
[2021-03-08] MEDS ORDERED: ONE-A-DAY ESSE1 EACH PO (03:37)
[2021-03-08] MEDS ORDERED: ROXICODONE 55 MG/TAB PO (03:40)
[2021-03-08 06:55] LABS: BASO # 0.1 (0.0-0.2); BASO % 0.5 % (0.0-2.0); EOS # 0.4 (0.0-0.7); EOS % 3.6 % (0-4.0); GRAN # 7.3 (1.4-6.5); GRAN % 75.9 % (42.2-75.2); HEMOGLOBIN 10.2 g/dl (13.5-18.0); LYMPH % 10.6 % (20.0-51.0); MEAN CELL VOLUME 94 fl (80.0-100.0); MEAN CORPUSCULAR HEMOGLOBIN 33 pg (27.0-31.0); MEAN CORPUSCULAR HGB CONC 35 g/dl (33.0-37.0); MEAN PLATELET VOLUME 10.7 fl (7.4-10.4); MONO # 0.9 (0.1-0.6); PLATELET COUNT 108 K/mm3 (130-400); RED BLOOD COUNT 3.13 M/mm3 (4.20-5.60); REDCELL DISTRIBUTION WIDTH-CV 17.3 % (11.5-14.5)
[2021-03-08 06:56] LABS: HEMATOCRIT 29.5 % (42.0-52.0)
[2021-03-08 07:05] LABS: CALCIUM 9.1 mg/dL (8.4-10.2); CREATININE, serum 1.22 (0.66-1.25); POTASSIUM 3.8 mmol/L (3.4-5.0)
--- NOTE | 2021-03-08 08:13 | NUR ---
PT LETHARGIC, WILL WAKE WITH SAYING PT NAME, PT WILL NOT RESPOND TO CONVERSATION OR ORIENTATION QUESTIONS, ASSESSMENT PERFORMED, PUPILS REACTIVE, NO OTHER NEEDS
--- NOTE | 2021-03-08 11:45 | NUR ---
PT INCONTINENT OF URINE, PERICARE PROVIDED AND GOWN CHANGED, STILL NO BM AT THIS TIME.
--- NOTE | 2021-03-08 14:58 | NUR ---
pt having yellow emesis. total bed change provided, bed bath provided, assisted pt in using urinal, no bm at this time.
--- NOTE | 2021-03-08 17:17 | NUR ---
INCONTINENT OF URINE, NO BM SO FAR, VOMITED X1, PERICARE PROVIDED, NPO AT THIS TIME, DENIES PAIN, PT ALERT TO NAME, ANSWERS SOME ORIENTATION QUESTIONS, NO OTHER NEEDS, REPOSITIONED NEEDED, FAMILY UPDATED. FAMILY REQUESTS NO UPDATES BE GIVEN TO SCOTT, PT AND HER HAVE BEEN FOR A YEAR, "IT'S A TOXIC RELATIONSHIP". DELIA IS DA IN CONTACT WITH, NUMBER IS [phone]
--- NOTE | 2021-03-08 22:25 | NUR ---
ALERT BUT NOT ORIENTATED. STARTED TO HAVE LOOSE WATERY LIQ DIARHEA THIS EVENING TOTAL OF 4 BM SO FAR. LACTULOUS HELD X 1 DOSE, WILL MONTITOR/ IV FLUSHED TO LEFT FA. BED IN LOW POSITION, CALL LIGHT WI REACH. DOOR OPEN FOR CLOSE MONITORING. BED ALARM ON.
[2021-03-09 04:05] VITALS: BP 104/57; PULSE 97; TEMP 97.7
--- NOTE | 2021-03-09 04:49 | NUR ---
SEVERAL BM OVERNIGHT. RESTED WITHOUT INCIDENT. MENTAL STATUS UNCHANGED.
[2021-03-09 06:55] LABS: BASO # 0.1 (0.0-0.2); BASO % 1.2 % (0.0-2.0); EOS # 0.4 (0.0-0.7); EOS % 8.5 % (0-4.0); GRAN # 2.9 (1.4-6.5); HEMOGLOBIN 10.1 g/dl (13.5-18.0); LYMPH # 0.9 (1.2-3.4); LYMPH % 17.5 % (20.0-51.0); MEAN CELL VOLUME 96 fl (80.0-100.0); MEAN CORPUSCULAR HEMOGLOBIN 32 pg (27.0-31.0); MEAN CORPUSCULAR HGB CONC 33 g/dl (33.0-37.0); MEAN PLATELET VOLUME 10.8 fl (7.4-10.4); MONO # 0.7 (0.1-0.6); MONO % 14.6 % (1.7-9.3); PLATELET COUNT 105 K/mm3 (130-400); RED BLOOD COUNT 3.16 M/mm3 (4.20-5.60); REDCELL DISTRIBUTION WIDTH-CV 17.7 % (11.5-14.5)
[2021-03-09 07:05] LABS: HEMATOCRIT 30.4 % (42.0-52.0)
[2021-03-09 07:09] LABS: CALCIUM 8.9 mg/dL (8.4-10.2); CREATININE, serum 0.95 (0.66-1.25); POTASSIUM 3.2 mmol/L (3.4-5.0)
[2021-03-09 08:00] VITALS: BP 101/59; PULSE 66; TEMP 98.7
--- NOTE | 2021-03-09 10:02 | NUR ---
Scheduled medications given. Shift assessment preformed. VSS. Calafate held for diarrhea. Generalized bruising noted. Patient denies any pain, discomfort, or futher needs at this time. Will continue to monitor. Call light in reach. Fall precautions in place.
--- NOTE | 2021-03-09 11:38 | NUR ---
Antonio was not able to meet with the pt due to the pt mental state. Antonio called the person to notify (Aleksandr # [phone]). Aleksandr informed antonio that pt was living in dual housing. He would stay in his home in [facility] and then visit his home in [place]. Aleksandr informed Antonio that once the pt is d/c he will be moving with him. Aleksandr informed Antonio that the pt sometimes dress himself and feed himself, but is not independent on others and needs a lot of help. The pt has a walker,wheelchair, shower chair,glucometer and uses insulin. The pt pcp is Gadiel chance and gets his prescriptions from [facility]. The pt has never used HH services before. Aleksandr informed Antonio that he is the DPOA-HC but they never got it notarized. Aleksandr also informed me that his sister is the pt visitor and she does not speak maori and you will need to call him to translate. No other needs stated at this time. Antonio to await further recommendations and follow up as needed. D/c: Home/with family vs...
[2021-03-09 12:00] VITALS: BP 104/61; PULSE 84; TEMP 97.8
--- NOTE | 2021-03-09 12:31 | NUR ---
Scheduled medications given. VSS. Lactulose order changed per Dr. Downs. Patiet denies any pain, discomfort, or further needs at this time. Will continue to monitor. Call light in reach. Fall precautions in place.
[2021-03-09 16:00] VITALS: BP 110/62; PULSE 91; TEMP 98.4
--- NOTE | 2021-03-09 18:00 | NUR ---
Patient is alert but continues to be confused. Family at the bedside. Patient denies any pain discomfort, or further needs at this time. Will continue to monitor. Call light in reach. Fall precautions in place.
[2021-03-09 20:28] VITALS: BP 104/60; PULSE 91; TEMP 97.6
--- NOTE | 2021-03-09 21:11 | NUR ---
PATIENT IS CALM IN BED.DENIES PAIN.SAFETY MEASURES IN PLACE.NO OTHER NEEDS AT THIS TIME.
[2021-03-09 23:36] VITALS: BP 97/58; PULSE 83; TEMP 97.8
[2021-03-10 04:28] VITALS: BP 94/53; PULSE 66; TEMP 98.7
--- NOTE | 2021-03-10 05:30 | NUR ---
PATIENT HAD A CALM NIGHT.DENIES PAIN.PATIENT IS ON NPO.SAFETY MAINTAINED.NO OTHER NEEDS AT THIS TIME.
--- NOTE | 2021-03-10 07:00 | NUR ---
Report received from JOSH Greenberg. Pt in bed resting, speaks spainish only, will continue to monitor.
[2021-03-10 07:23] LABS: BASO # 0.1 (0.0-0.2); BASO % 1.1 % (0.0-2.0); EOS # 0.4 (0.0-0.7); EOS % 8.9 % (0-4.0); GRAN # 2.6 (1.4-6.5); GRAN % 54.2 % (42.2-75.2); LYMPH # 1.1 (1.2-3.4); LYMPH % 22.9 % (20.0-51.0); MEAN CELL VOLUME 98 fl (80.0-100.0); MEAN CORPUSCULAR HGB CONC 33 g/dl (33.0-37.0); MEAN PLATELET VOLUME 10.2 fl (7.4-10.4); MONO # 0.6 (0.1-0.6); MONO % 12.5 % (1.7-9.3); PLATELET COUNT 89 K/mm3 (130-400); RED BLOOD COUNT 2.94 M/mm3 (4.20-5.60); REDCELL DISTRIBUTION WIDTH-CV 17.8 % (11.5-14.5)
[2021-03-10 07:24] LABS: HEMATOCRIT 28.7 % (42.0-52.0); HEMOGLOBIN 9.6 g/dl (13.5-18.0); MEAN CORPUSCULAR HEMOGLOBIN 33 pg (27.0-31.0)
[2021-03-10 07:33] LABS: CALCIUM 8.1 mg/dL (8.4-10.2); CREATININE, serum 0.84 (0.66-1.25); POTASSIUM 3.4 mmol/L (3.4-5.0)
[2021-03-10 08:32] VITALS: BP 99/54; PULSE 87; TEMP 98.6
--- NOTE | 2021-03-10 10:00 | NUR ---
Assessment charted. Pt is alert, partially oriented, very hungry and thirsty and eating an drinking very well now that he is allowed to eat and drink. Discussedp newspaper deliverer of care. Called shayla meek gave update after rounding, INT to LFA. Will continue to monitor.
[2021-03-10 11:53] VITALS: BP 100/56; PULSE 78; TEMP 98.5
[2021-03-10 16:47] VITALS: BP 105/58; PULSE 93; TEMP 98.7
--- NOTE | 2021-03-10 19:34 | NUR ---
Pt resting in bed, doing well, sister at bedside most the day. pt requires SBA from bathroom as he gets week. Resting in bed, eating and drinking well, bedside shift report to nightshift nurse who will resume care.
[2021-03-10 19:43] VITALS: BP 96/54; PULSE 83; TEMP 97.8
[2021-03-11 00:03] VITALS: BP 89/56; PULSE 71; TEMP 98.5
[2021-03-11 03:13] VITALS: BP 86/53; PULSE 75; TEMP 98.3
--- NOTE | 2021-03-11 05:40 | NUR ---
PT HAD UNEVENTFUL NIGHT, BP'S REMAINED SOFT; PT REMAINED ASYMPTOMATIC. PT IS A/OX4, ABLE TO FOLLOW VERBAL COMMANDS AND VERBALLY EXPRESS NEEDS. PT DENIES PAIN,N,V,D. PT EXPRESSES NO ADDITONAL NEEDS AT THIS TIME. CALL LIGHT WITHIN REACH.
[2021-03-11 07:39] LABS: HEMATOCRIT 26.9 % (42.0-52.0); HEMOGLOBIN 9.1 g/dl (13.5-18.0); MEAN CELL VOLUME 94 fl (80.0-100.0); MEAN CORPUSCULAR HEMOGLOBIN 32 pg (27.0-31.0); MEAN CORPUSCULAR HGB CONC 34 g/dl (33.0-37.0); MEAN PLATELET VOLUME 10.9 fl (7.4-10.4); PLATELET COUNT 90 K/mm3 (130-400); RED BLOOD COUNT 2.85 M/mm3 (4.20-5.60); REDCELL DISTRIBUTION WIDTH-CV 16.9 % (11.5-14.5)
[2021-03-11 07:46] LABS: ALBUMIN 1.7 gm/dL (3.5-5.0); BILIRUBIN,TOTAL 3.1 mg/dL (0.0-1.0); CALCIUM 7.3 mg/dL (8.4-10.2); CREATININE, serum 0.74 (0.66-1.25); POTASSIUM 3.6 mmol/L (3.4-5.0); TOTAL PROTEIN 5.2 gm/dL (6.4-8.2)
[2021-03-11 07:55] VITALS: BP 99/64; PULSE 64; TEMP 98.5
--- NOTE | 2021-03-11 08:24 | NUR ---
Pt sleeping upon arrival, easily awoken. Oriented this AM. Pt denies pain at this time. Neuro check performed, no abnormalities noted. Pt has bruise over left forearm.
--- NOTE | 2021-03-11 09:33 | NUR ---
LILIYA attended clinical rounds. The patient is to discharge back home today, 03/11. LILIYA followed up with the patient to review d/c plan, utilizing the interpretor services. The patient lives in [place] with his sister, Gisella Cruz, and her family. He states that he has a walker and wheelchair. His PCP is Dr. Verna Ewing and he receives his medications from [facility]. He reports no difficulties obtaining his meds. The patient is listed as self pay. He reports that he used to have Medicaid and would be interested in reapplying for Medicaid. SW consulted Financial Counselor, Deandra. The patient was unsure if he has a DPOA-HC. The patient states that he is getting a divorce from his and that he does not have any children. LILIYA discussed completing a DPOA-HC. The patient was interested in completing a DPOA-HC and verbalized that he wants his sister, Renea (ph#[phone]), to make decisions for him when he cannot. He was not sure of her last name. He states that she lives in [place], [place]. LILIYA and director of community centerPrateek, witnessed the patient's signature. LILIYA provided the patient with the original and some copies. LILIYA placed a copy in the patient's chart. The patient plans to return home with his sister and her family today. He reports that she is on her way up to the hospital to pick him up now. No additional needs at this time.
--- NOTE | 2021-03-11 11:27 | NUR ---
Pt education provided on discharge care and follow up appointments. Pt's sister present at bedside and also updated on plan of care. IV removed and telemetry monitoring discontinued. Questions answered to best of ability.
== END 2021-03-11 11:00 | disposition home or self-care (01) | DRG 442 ==
LOC: COL.ER 22:04 → MEDICAL 23:14
PROVIDERS: Emergency Medicine; Nurse Practitioner Family; Physician Assistant; ADMIT Student in an Organized Health Care Education/Training Program
DX: K72.90 Hepatic failure, unspecified without coma (principal); J90 Pleural effusion, not elsewhere classified; C22.8 Malignant neoplasm of liver, primary, unspecified as to type; N17.9 Acute kidney failure, unspecified; E87.2 Acidosis; K70.30 Alcoholic cirrhosis of liver without ascites; D69.6 Thrombocytopenia, unspecified; D64.9 Anemia, unspecified; Z20.822 Contact with and (suspected) exposure to COVID-19; E87.6 Hypokalemia; E11.9 Type 2 diabetes mellitus without complications; R27.8 Other lack of coordination; Z79.4 Long term (current) use of insulin; Z79.891 Long term (current) use of opiate analgesic; Z87.891 Personal history of nicotine dependence; Z88.0 Allergy status to penicillin
CPT/HCPCS: 99223-AI; 99232-AI; 99233-AI; 99239; J0696; J1815; J3480

== ENCOUNTER 2021-05-07 14:24 | Emergency (ER) | payer SELFPAY ==
[~2021-05-07] VITALS: Ht 165.1 cm; Wt 62.7 kg
[~2021-05-07 14:24] MED LIST changes: +ATIVAN 0.50.5 MG/TAB PO; +BELSOMRA5 MG PO; +COMPAZINE 110 MG/TAB PO; +ONE-A-DAY ESSE1 EACH PO; +SYNTHROID0.125 MG/T PO
[2021-05-07 14:48] VITALS: TEMP 98.3
[2021-05-07 15:44] LABS: BASO % 0.7 % (0.0-2.0); EOS # 0.3 (0.0-0.7); EOS % 7.2 % (0-4.0); GRAN # 2.7 (1.4-6.5); GRAN % 59.4 % (42.2-75.2); LYMPH # 0.8 (1.2-3.4); LYMPH % 18.2 % (20.0-51.0); MEAN CELL VOLUME 92 fl (80.0-100.0); MEAN CORPUSCULAR HGB CONC 34 g/dl (33.0-37.0); MEAN PLATELET VOLUME 10.8 fl (7.4-10.4); MONO # 0.7 (0.1-0.6); MONO % 14.1 % (1.7-9.3); PLATELET COUNT 103 K/mm3 (130-400); RED BLOOD COUNT 3.03 M/mm3 (4.20-5.60); REDCELL DISTRIBUTION WIDTH-CV 15.1 % (11.5-14.5)
[2021-05-07 15:47] LABS: HEMOGLOBIN 9.5 g/dl (13.5-18.0); MEAN CORPUSCULAR HEMOGLOBIN 31 pg (27.0-31.0)
[2021-05-07 15:52] LABS: INR 2.2 (0.8-3.0); PROTHROMBIN TIME 24.3 SECONDS (9.7-12.8)
[2021-05-07 15:54] LABS: ALANINE AMINOTRANSFERASE 27 U/L (4-49); ALBUMIN 2.1 gm/dL (3.5-5.0); ALKALINE PHOSPHATASE 274 U/L (50-136); ANION GAP 6 mmol/L (7-16); AST,SGOT 59 U/L (15-37); BILIRUBIN,TOTAL 2.8 mg/dL (0.0-1.0); BLOOD UREA NITROGEN 9 mg/dL (9-20); CALCIUM 7.8 mg/dL (8.4-10.2); CARBON DIOXIDE 25 mmol/L (22-30); CHLORIDE 101 mmol/L (98-107); CREATINE KINASE 38 U/L (55-170); GLUCOSE 171 mg/dL (74-106); LIPASE 99 U/L (23-300); POTASSIUM 4.5 mmol/L (3.4-5.0); SODIUM 132 mmol/L (137-145); TOTAL PROTEIN 6.2 gm/dL (6.4-8.2)
[2021-05-07 16:16] LABS: TROPONIN-I < 0.012 ng/mL (0.000-0.035)
[2021-05-07 17:54] VITALS: BP 96/61; PULSE 85
[2021-05-07] MEDS ORDERED: NORCO 325 MG-51 TAB PO (18:09)
== END 2021-05-07 18:13 | disposition home or self-care (01) ==
LOC: COL.ER 14:24
PROVIDERS: Emergency Medicine
DX: R07.89 Other chest pain (principal); C22.9 Malignant neoplasm of liver, not specified as primary or secondary; J90 Pleural effusion, not elsewhere classified; E11.9 Type 2 diabetes mellitus without complications; Z79.84 Long term (current) use of oral hypoglycemic drugs
CPT/HCPCS: J2270; J2405; J7030; Q9967

== ENCOUNTER 2021-05-18 15:18 | Inpatient (IN) | payer SELFPAY ==
[~2021-05-18] VITALS: Ht 165.1 cm; Wt 65.0 kg
[2021-05-18 17:10] LABS: BASO # 0.1 (0.0-0.2); BASO % 0.7 % (0.0-2.0); EOS # 0.3 (0.0-0.7); EOS % 3.3 % (0-4.0); GRAN # 6.9 (1.4-6.5); GRAN % 75.5 % (42.2-75.2); HEMOGLOBIN 10.8 g/dl (13.5-18.0); LYMPH # 0.8 (1.2-3.4); LYMPH % 8.6 % (20.0-51.0); MEAN CELL VOLUME 90 fl (80.0-100.0); MEAN CORPUSCULAR HEMOGLOBIN 31 pg (27.0-31.0); MEAN CORPUSCULAR HGB CONC 35 g/dl (33.0-37.0); MEAN PLATELET VOLUME 9.9 fl (7.4-10.4); MONO # 1.1 (0.1-0.6); MONO % 11.6 % (1.7-9.3); PLATELET COUNT 138 K/mm3 (130-400); RED BLOOD COUNT 3.49 M/mm3 (4.20-5.60); REDCELL DISTRIBUTION WIDTH-CV 15.2 % (11.5-14.5)
[2021-05-18 17:11] LABS: HEMATOCRIT 31.3 % (42.0-52.0)
[2021-05-18 17:32] LABS: ALBUMIN 1.7 gm/dL (3.5-5.0); BILIRUBIN,TOTAL 3.6 mg/dL (0.2-1.2); CREATININE, serum 1.3 mg/dL (0.72-1.25); POTASSIUM 4.7 mmol/L (3.5-4.5); TOTAL PROTEIN 6.9 gm/dL (6.2-8.1)
[2021-05-18 17:33] LABS: LACTIC ACID 6.5 mmol/L (0.5-2.0)
--- NOTE | 2021-05-18 19:30 | NUR ---
PATIENT WAS RECEIVED FROM ED ON A CART.PATIENT IS ON ROOM AIR.PAIENT SPEECHS SAMI DOES NOT UNDERSTAND ROMANIAN.PATIENT IS ALERT.NO CONFUSION NOTED AT THIS TIME.DENIES PAIN.ADMISSION ORIENTATION DONE.SAFETY MEASURES IN PLACE.NO OTHER NEEDS AT THIS TIME.
[2021-05-18 20:20] VITALS: BP 107/57; PULSE 88; TEMP 97.9
[2021-05-18 23:18] LABS: ARTERIAL BLD GAS O2 SATURATION 91.7 % (92-100); ARTERIAL BLD GAS TCO2 CT 22.9; ARTERIAL BLOOD GAS BASE EXCESS -0.2 (-2-2); ARTERIAL BLOOD GAS HCO3 22.1 meq/L (22-26); ARTERIAL BLOOD GAS PCO2 28.3 mmHg (35-45); ARTERIAL BLOOD GAS PO2 60.8 mmHg (80-100); ARTERIAL BLOOD GAS pH 7.51 (7.35-7.45)
[2021-05-18] MEDS ORDERED: EUTHYROX137 MCG PO (23:49)
[2021-05-19] VITALS (7 sets, daily range): BP systolic 94–118; BP diastolic 52–60; PULSE 59–84; TEMP 98–99.3
[2021-05-19 01:07] LABS: INR 2.1 (0.8-3.0); PROTHROMBIN TIME 23.9 SECONDS (9.7-12.8)
--- NOTE | 2021-05-19 04:27 | NUR ---
pATIENT IS ALERT.DENIES PAIN AND SOB.NO CONFUSION NOTED.SAFETY MEASURES IN PLACE.NO OTHER NEEDS AT THIS TIME.
--- NOTE | 2021-05-19 05:30 | NUR ---
URINE SAMPLE COLLECTED SENT TO LAB
--- NOTE | 2021-05-19 05:49 | NUR ---
Spoke with SURESH Grullon about lactulose order an bowel movements. Pass information on to JOSH Greenberg to follow PRN order of lactulose Q2h until having bowel movements and to give a dose now. Verbalizes understanding.
[2021-05-19 06:42] LABS: BASO % 0.7 % (0.0-2.0); EOS # 0.3 (0.0-0.7); EOS % 5.4 % (0-4.0); GRAN # 3.5 (1.4-6.5); GRAN % 60.6 % (42.2-75.2); LYMPH # 1.2 (1.2-3.4); LYMPH % 20.9 % (20.0-51.0); MEAN CELL VOLUME 92 fl (80.0-100.0); MEAN CORPUSCULAR HGB CONC 34 g/dl (33.0-37.0); MEAN PLATELET VOLUME 10.6 fl (7.4-10.4); MONO # 0.7 (0.1-0.6); MONO % 12.1 % (1.7-9.3); PLATELET COUNT 123 K/mm3 (130-400); RED BLOOD COUNT 3.05 M/mm3 (4.20-5.60); REDCELL DISTRIBUTION WIDTH-CV 15.6 % (11.5-14.5)
[2021-05-19 06:46] LABS: HEMATOCRIT 27.9 % (42.0-52.0); HEMOGLOBIN 9.5 g/dl (13.5-18.0); MEAN CORPUSCULAR HEMOGLOBIN 31 pg (27.0-31.0)
--- NOTE | 2021-05-19 06:58 | NUR ---
PATIENT HAS NOT HAD A BOWEL MOVEMENT.
[2021-05-19 07:04] LABS: COLLECTION METHOD CLEAN CATCH
[2021-05-19 07:07] LABS: CALCIUM 8.8 mg/dL (8.4-10.2); CREATININE, serum 1.3 mg/dL (0.72-1.25)
--- NOTE | 2021-05-19 07:08 | NUR ---
REPORT RECEIVED FROM JOSH GUY. PT AWAKE/ALERT IN BED. ON COUCH IN ROOM. PT DENIES PAIN. REQUESTED WATER. NO OTHER NEEDS AT THIS TIME. CALL COBOS IN REACH
[2021-05-19 07:13] LABS: PH 7 (5-8); SQUAMOUS EPITHELIAL 0-2 /hpf; URINE APPEARANCE Clear; URINE BACTERIA None Seen /hpf; URINE BILIRUBIN Negative (NEGATIVE); URINE BLOOD Negative (NEGATIVE); URINE COLOR Straw; URINE GLUCOSE Negative (NEGATIVE); URINE KETONE Negative (NEGATIVE); URINE LEUKOCYTE ESTERASE Negative (NEGATIVE); URINE NITRATE Negative (NEGATIVE); URINE PROTEIN(semi-quant) Negative (NEGATIVE); URINE RBC None Seen /hpf; URINE UROBILINOGEN Negative (NEGATIVE)
--- NOTE | 2021-05-19 10:08 | NUR ---
Initial visit; Patient thanked Supply Planner for letting her know of the availability of a Supply Planner and for wishing her God's blessings.
--- NOTE | 2021-05-19 16:26 | NUR ---
culture room worker met with patient in room to discuss discharge plan. Friend Kellen ([phone]) who is a friend to the patient present at bedside. Patient appears to understand what the social media coordinator is saying and is able to answer "Yes"/"No" questions. Patient lives with his sister Ana but did not have her phone #. Patient has another sister (Renea) who is to Aleksandr.culture room worker contacted Aleksandr who reports he is the patients primary care navigator. Reports that the patient has both a cane and a walker that he uses "when he wants to". PCP is Dr. Ewing and sees [facility] for cancer needs. The patient uses [facility] in [place].Aleksandr reports that he and his are paying for all of the patients medical expenses as well as perscriptions and that they are struggling with that. Reports that the patient has multiple family members in [place] that practice healthcare and both himself and his Renea have encouraged the patient to return, due to the cost being less expensive for his care, however the patient is indecisive about this plan. States the patient has turned in a FAA "months" ago but haven't heard anything. culture room worker provided contact information for Deandra Michael to call and check on the status of the application. culture room worker educated Aleksandr that if the patient was to need to go home with home O2 at the time of DC that we would utilize [facility] and that the FAA honors them. *Discharge plan: home with family*
--- NOTE | 2021-05-19 17:24 | NUR ---
PT HAD UNEVENTFUL SHIFT. ALERT/ORIENT X2. SEEMS TO "ZONE OUT" SLIGHTLY OCCASSIONALLY FOR A FEW SECONDS. PLEASANT AND COOPERATIVE. FRIEND IN ROOM; HELPS PT TRANSLATE AND HELPS CARE FOR PT. PT DENIES PAIN. NO NEEDS AT THIS TIME. EATING DINNER. CALL COBOS IN REACH
[2021-05-20 03:20] VITALS: BP 98/53; PULSE 77; TEMP 97.7
--- NOTE | 2021-05-20 05:45 | NUR ---
pt had uneventful night, pt remains a/ox4 with a verbal noted delay, pt denies pain,n,v, and reports one episode of diahhrea. No bleeding, echymosis, s/s bleeding noted. all medications administered as ordered. all questions/concerns answered. call light wtihin reach. bed low.
[2021-05-20 06:38] LABS: BASO % 0.7 % (0.0-2.0); EOS # 0.5 (0.0-0.7); EOS % 8.1 % (0-4.0); GRAN # 3.1 (1.4-6.5); GRAN % 55.1 % (42.2-75.2); LYMPH # 1.2 (1.2-3.4); LYMPH % 22.2 % (20.0-51.0); MEAN CELL VOLUME 94 fl (80.0-100.0); MEAN CORPUSCULAR HGB CONC 33 g/dl (33.0-37.0); MEAN PLATELET VOLUME 10.7 fl (7.4-10.4); MONO # 0.8 (0.1-0.6); MONO % 13.5 % (1.7-9.3); PLATELET COUNT 110 K/mm3 (130-400); RED BLOOD COUNT 2.91 M/mm3 (4.20-5.60); REDCELL DISTRIBUTION WIDTH-CV 15.8 % (11.5-14.5)
[2021-05-20 06:41] LABS: HEMATOCRIT 27.4 % (42.0-52.0); MEAN CORPUSCULAR HEMOGLOBIN 31 pg (27.0-31.0)
[2021-05-20 06:51] LABS: INR 2.1 (0.8-3.0); PROTHROMBIN TIME 23.9 SECONDS (9.7-12.8)
[2021-05-20 07:01] LABS: ALBUMIN 1.4 gm/dL (3.5-5.0); BILIRUBIN,TOTAL 2.5 mg/dL (0.2-1.2); CALCIUM 8.2 mg/dL (8.4-10.2); CREATININE, serum 1.32 mg/dL (0.72-1.25); POTASSIUM 3.7 mmol/L (3.5-4.5); TOTAL PROTEIN 5.6 gm/dL (6.2-8.1)
--- NOTE | 2021-05-20 08:13 | NUR ---
Patient laying in bed upon entering the room. Family member is present d/t the patient having AMS. Patient is georgian speaking. This RN is able to communicate necessities but will use spanish interpreter when required. Patient was able to state his full name, , and where he was. Patient took scheduled medications w/o difficulty. Patient denied any pain. Assessment completed.
[2021-05-20 08:33] VITALS: BP 99/51; PULSE 88; TEMP 98
[2021-05-20] MEDS ORDERED: MEPHYTON 5MG5 MG/TAB PO (10:53)
--- NOTE | 2021-05-20 11:02 | NUR ---
SW rounded with medical team. Patient is medically clearned and able to discharge home with no needs
[2021-05-20 12:00] VITALS: BP 101/62; PULSE 89; TEMP 97.6
--- NOTE | 2021-05-20 12:29 | NUR ---
First visit from the police captain senior. No needs right now.
--- NOTE | 2021-05-20 15:50 | NUR ---
Patient discharged home with family member. Intepreter was used for discharge instructions as the patient is faroese speaking only. IV access was discontinued and patient was escorted out by PCT.
== END 2021-05-20 15:15 | disposition home or self-care (01) | DRG 441 ==
LOC: COL.ER 15:18 → MEDICAL 18:05
PROVIDERS: Emergency Medicine; Family Medicine; Nurse Practitioner Family; Physician Assistant; ADMIT Internal Medicine
DX: K72.00 Acute and subacute hepatic failure without coma (principal); J96.01 Acute respiratory failure with hypoxia; C22.8 Malignant neoplasm of liver, primary, unspecified as to type; E87.3 Alkalosis; J90 Pleural effusion, not elsewhere classified; E87.2 Acidosis; N17.9 Acute kidney failure, unspecified; J81.1 Chronic pulmonary edema; E87.1 Hypo-osmolality and hyponatremia; D68.9 Coagulation defect, unspecified; E11.9 Type 2 diabetes mellitus without complications; D64.9 Anemia, unspecified; E87.6 Hypokalemia; E87.5 Hyperkalemia; Z20.822 Contact with and (suspected) exposure to COVID-19; Z90.49 Acquired absence of other specified parts of digestive tract; Z79.84 Long term (current) use of oral hypoglycemic drugs
CPT/HCPCS: 99223-AI; 99233-AI; 99239; J0696; J1815; J1940; J7050